=== PATIENT | male | born 1950 | race Caucasian/White ===

== ENCOUNTER 2017-05-01 06:57 | Inpatient (IN) ==
--- OUTSIDE RECORDS SUMMARY | 2017-05-01 07:05 | External Medical Summary | Referral Summary ---
:1950 Author Organization [facility] Address [address] [place] [address] HARSHA Harris [id number] Care Team Providers Name Role Phone Jg Gregg Primary Care Physician Encounter VC Date(s): 04/27/16 - 04/27/16 [facility] [address] [place] [address] HARSHA Harris [phone] Discharge Diagnosis: Incisional hernia Discharge Disposition: 01-Home or Self Care Attending Physician: Brian Galeana MD Admitting Physician: Brian Galeana MD Vital Signs Most recent to oldest [Reference Range]: 1 Temperature Tympanic [36.6-38.1 degC] 36.1 degC *LOW* (04/27/16 3:38 PM) Peripheral Pulse Rate [60-100 bpm] 89 bpm (04/27/16 3:38 PM) Blood Pressure [90-140/60-90 mmHg] 128/78 mmHg (04/27/16 3:38 PM) SpO2 98 % (04/27/16 3:38 PM) Problem List Condition Effective Dates Status Health Status Informant Diabetes mellitus(Confirmed) Active Diverticulitis of intestine with 02/2007 Active perforation(Confirmed) GERD (gastroesophageal reflux Active disease)(Confirmed) History of Marin's Active esophagus(Confirmed) Asthma(Confirmed) Active Obesity(Confirmed) Active patient Hiatal hernia(Confirmed) Active Allergies, Adverse Reactions, Alerts Substance Reaction Severity Status Latex Active penicillin Active Medications Advair Diskus 250 mcg-50 mcg inhalation powder 1 puffs, Inhalation, BID, # 28 Each, 0 Refill(s) Start Date: 06/25/14 Status: Orderedfluticasone 27.5 mcg/inh nasal spray 2 sprays, Nasal, Daily, as needed for allergy symptoms, # 10 g, 0 Refill(s) Start Date: 06/25/14 Status: OrderedHumaLOG 100 units/mL subcutaneous solution 10 units, SubCutaneous, TIDAC, # 10 mL, 0 Refill(s) Start Date: 04/26/16 Status: OrderedLevemir 100 units/mL subcutaneous solution 30 units, SubCutaneous, BID, 0 Refill(s) Start Date: 04/26/16 Status: Orderedlisinopril 10 mg oral tablet 10 mg 1 tabs, Oral, Daily, # 30 tabs, 0 Refill(s) Start Date: 04/26/16 Status: Orderedomeprazole 40 mg oral delayed release capsule 1 caps, Oral, Daily, # 30 caps, 0 Refill(s) Start Date: 06/25/14 Status: OrderedProAir HFA 90 mcg/inh inhalation aerosol 2 puffs, Inhalation, QID, as needed for wheezing, # 8.5 g, 0 Refill(s) Start Date: 04/26/16 Status: OrderedSingulair 10 mg oral tablet 1 tabs, Oral, qPM, # 30 tabs, 0 Refill(s) Start Date: 06/25/14 Status: Ordered Results No data available for this section Immunizations No data available for this section Procedures Procedure Date Related Diagnosis Body Site Esophagogastroduodenoscopy 08/2013 Appendectomy1 09/2007 Take-down of colostomy 09/2007 History of partial colectomy2 02/2007 Hx of knee surgery3 2006 1at same time as colostomy [id number] Social History Social History Type Response Smoking Status Never smoker Assessment and Plan Extracted from: Title: Ambulatory Patient Education Author: Brian Galeana MD Date: Emergency Medicine Hernia, Adult A hernia is the bulging of an organ or tissue through a weak spot in the muscles of the abdomen (abdominal wall). Hernias develop most often near the navel or groin. There are many kinds of hernias. Common kinds include: Femoral hernia. This kind of hernia develops under the groin in the upper thigh area. Inguinal hernia. This kind of hernia develops in the groin or scrotum. Umbilical hernia. This kind of hernia develops near the navel. Hiatal hernia. This kind of hernia causes part of the stomach to be pushed up into the chest. Incisional hernia. This kind of hernia bulges through a scar from an abdominal surgery. CAUSES This condition may be caused by: Heavy lifting. Coughing over a long period of time. Straining to have a bowel movement. An incision made during an abdominal surgery. A defect (congenital defect). Excess weight or obesity. Smoking. Poor nutrition. Cystic fibrosis. Excess fluid in the abdomen. Undescended testicles. SYMPTOMS Symptoms of a hernia include: A lump on the abdomen. This is the first sign of a hernia. The lump may become more obvious with standing, straining, or coughing. It may get bigger over time if it is not treated or if the condition causing it is not treated. Pain. A hernia is usually painless, but it may become painful over time if treatment is delayed. The pain is usually dull and may get worse with standing or lifting heavy objects. Sometimes a hernia gets tightly squeezed in the weak spot (strangulated) or stuck there (incarcerated) and causes additional symptoms. These symptoms may include: Vomiting. Nausea. Constipation. Irritability. DIAGNOSIS A hernia may be diagnosed with: A physical exam. During the exam your health care provider may ask you to cough or to make a specific movement, because a hernia is usually more visible when you move. Imaging tests. These can include: X-rays. Ultrasound. CT scan. TREATMENT A hernia that is small and painless may not need to be treated. A hernia that is large or painful may be treated with surgery. Inguinal hernias may be treated with surgery to prevent incarceration or st rangulation. Strangulated hernias are always treated with surgery, because lack of blood to the trapped organ or tissue can cause it to . Surgery to treat a hernia involves pushing the bulge back into place and repairing the weak part of the abdomen. HOME CARE INSTRUCTIONS Avoid straining. Do not lift anything heavier than 10 lb (4.5 kg). Lift with your leg muscles, not your back muscles. This helps avoid strain. When coughing, try to cough gently. Prevent constipation. Constipation leads to straining with bowel movements, which can make a hernia worse or cause a hernia repair to break down. You can prevent constipation by: Eating a high-fiber diet that includes plenty of fruits and vegetables. Drinking enough fluids to keep your urine clear or pale yellow. Aim to drink 68 glasses of water per day. Using a stool softener as directed by your health care provider. Lose weight, if you are overweight. Do not use any tobacco products, including cigarettes, chewing tobacco, or electronic cigarettes. If you need help quitting, ask your health care provider. Keep all follow-up visits as directed by your health care provider. This is important. Your health care provider may need to monitor your condition. SEEK MEDICAL CARE IF: You have swelling, redness, and pain in the affected area. Your bowel habits change. SEEK IMMEDIATE MEDICAL CARE IF: You have a fever. You have abdominal pain that is getting worse. You feel nauseous or you vomit. You cannot push the hernia back in place by gently pressing on it while you are lying down. The hernia: Changes in shape or size. Is stuck outside the abdomen. Becomes discolored. Feels hard or tender. This information is not intended to replace advice given to you by your health care provider. Make sure you discuss any questions you have with your health care provider. Document Released: 03/14/2006 Document Revised: 04/04/2015 Document Reviewed: 01/22/2015 [employer] Patient Education 2016 [employer]. No follow up information was provided. Extracted from: Title: Office Visit Note Author: Brian Galeana MD Date: 04/27/16 Assessment/Plan 1.Incisional hernia Ordered: Office Visit Level 4 Est 61675 Plan:Robotic-assisted laparoscopicventral herniorrhaphy with incorporation of mesh. We'll schedule at patient's requestat later date. I didreview the patient's chart including office note performed by his primary care physician from December 17, 2015. I also reviewed my prior consultation note from his [facility] 2015.. I informed the patient that he does indeed have an incisional hernia and I would recommend proceeding with an elective repairat some point time. I spent a fair amount of time discussi ng hernias as an entity with the patient. . I did discuss in detail with the patient what a robotic-assisted laparoscopic incisional herniorrhaphy with mesh entailed and its associated risks including b ut not inclusive of bleeding and infection,, potential conversion to open procedure,potential injury tounderlying viscusas a result ofprobable adhesions as well as potential for recurrence. Th e patient understood will call back when he is ready to schedule. Patient stated that he would like to try to lose somemore weight before proceeding with surgical intervention. Patient informsme that he has lost about 100 pounds overthe last year and a half. I informed the patient that I felt thiswas appropriate and that his risk for recurrencewould be lessif he was indeed able to lo se some additional weight before proceeding with surgery.
--- OUTSIDE RECORDS SUMMARY | 2017-05-01 07:05 | External Medical Summary ---
:1950 Author Organization [employer] Care Team Providers Name Role Phone Miguelina Ramirez Provider Role Unavailable Allergies No Known Allergies Problems Problem Type Condition Code Onset Dates Condition Status Problem Other nonspecific finding on 791.9 Active examination of urine Problem Urinary frequency 788.41 Active Problem Diabetes Mellitus Type 2, not stated 250.00 Active as uncontrolled Problem Right upper quadrant pain R10.11 Active Problem Dysuria 788.1 Active Problem Diabetes Mellitus Type 2, not stated 250.00 Active as uncontrolled Medications No Known Medications Results No Known Results Summary Purpose eClinicalWorks Submission
--- OUTSIDE RECORDS SUMMARY | 2017-05-01 07:05 | External Medical Summary ---
:1950 Author Organization [employer] Care Team Providers Name Role Phone Jg Gregg Provider Role Unavailable Allergies, Adverse Reactions, Alerts Substance Reaction Event Type Penicillin respitory distress Drug Allergy Latex Info Not Available Non Drug Allergy ragweed Info Not Available Non Drug Allergy hayfever Info Not Available Non Drug Allergy Problems Problem Type Condition Code Onset Dates Condition Status Problem Diabetes Mellitus Type 2, not 250.00 Active stated as uncontrolled Problem Frequency of micturition R35.0 Active Problem Acute bronchitis, unspecified J20.9 Active Problem Allergic rhinitis, unspecified J30.9 Active Assessment Ventral hernia without obstruction K43.9 Active or gangrene Problem Unspecified asthma, uncomplicated J45.909 Active Problem Type 2 diabetes mellitus with E11.65 Active hyperglycemia Problem Gastro-esophageal reflux disease K21.9 Active without esophagitis Problem Other asthma J45.998 Active Problem Type 2 diabetes mellitus without E11.9 Active complications Problem Essential (primary) hypertension I10 Active Assessment Allergic rhinitis, unspecified J30.9 Active Assessment Essential (primary) hypertension I10 Active Assessment Hyperlipidemia, unspecified E78.5 Active Assessment Unspecified asthma, uncomplicated J45.909 Active Problem Diabetes Mellitus Type 2, not 250.00 Active stated as uncontrolled Problem Dysuria 788.1 Active Assessment Type 2 diabetes mellitus with E11.65 Active hyperglycemia Problem Urinary frequency 788.41 Active Problem Right upper quadrant pain R10.11 Active Problem Other nonspecific finding on 791.9 Active examination of urine Medications Medication Code System Code Instructions Start End Date Status Dosage Date Singulair [facility] 31325-97 10 MG Orally 1 tablet in 17-01 Once a day the evening Advair Diskus [facility] 01132-53 250-50 MCG/DOSE 1 puff 96-00 Inhalation Twice a day Levemir Flexpen [facility] 03401-48 100 UNIT/ML Oct 28, 25 units in 39-10 Subcutaneous as 2016 the am and directed. 25 units in the pm daily. ProAir HFA [facility] 67768-70 108 (90 Base) Oct 28, 1 to 2 51-85 MCG/ACT 2016 puffs as Inhalation every needed for 6 hrs asthma symptoms. Flonase [facility] 85092-32 50 MCG/ACT 1 spray in Nasally Once a each day nostril Lisinopril [facility] 98075-20 10 MG Orally 1 tablet Once a day Humalog KwikPen [facility] 90380-32 100 UNIT/ML Oct 28 units Subcutaneous as 2015 tid with directed meals. Procedures Procedure Coding System Code Date OFFICE VISIT, EST-LOW COMPLEXITY (15 MIN.) CPT-4 43988 Dec 17, 2015 Vital Signs Date/Time: Dec 17, 2015 Temperature 96.8 F Height 70 in Weight 306.0 lbs Blood Pressure Diastolic 80 mm Hg Blood Pressure Systolic 140 mm Hg Cardiac Monitoring Heart Rate 93 /min BMI 43.90 Index Oximetry 98 % Respiratory Rate 18 /min Results No Known Results Summary Purpose eClinicalWorks Submission
--- OUTSIDE RECORDS SUMMARY | 2017-05-01 07:06 | External Medical Summary ---
[...] Condition Code Onset Dates Condition Status Problem Dysuria 788.1 Active Problem Other nonspecific finding on 791.9 Active examination of urine Problem Urinary frequency 788.41 Active Problem Essential (primary) hypertension I10 Active Problem Gastro-esophageal reflux disease K21.9 Active without esophagitis Problem Type 2 diabetes mellitus without E11.9 Active complications Problem Acute bronchitis, unspecified J20.9 Active Problem Diabetes Mellitus Type 2, not 250.00 Active stated as uncontrolled Problem Other asthma J45.998 Active Problem Frequency of micturition R35.0 Active Assessment Other asthma J45.998 Active Assessment Essential (primary) hypertension I10 Active Assessment Type 2 diabetes mellitus without E11.9 Active complications Assessment Gastro-esophageal reflux disease K21.9 Active without esophagitis Problem Right upper quadrant pain R10.11 Active Assessment Seasonal allergies J30.2 Active Problem Diabetes Mellitus Type 2, not 250.00 Active stated as uncontrolled Medications Medication Code System Code Instructions Start End Date Status Dosage Date Advair Diskus [facility] 98580-18 250-50 MCG/DOSE 1 puff 96-00 Inhalation Twice a day ProAir HFA [facility] 32736-50 108 (90 Base) Oct 28, 1 to 2 51-85 MCG/ACT 2016 puffs as Inhalation every needed for 6 hrs asthma symptoms. Humalog KwikPen [facility] 31589-89 100 UNIT/ML Oct 28, 10 units 99-01 Subcutaneous as 2015 tid with directed meals. Lisinopril [facility] 35924-85 10 MG Orally 1 tablet - Once a day Flonase [facility] 14621-59 50 MCG/ACT 1 spray in 01 Nasally Once a each day nostril Levemir Flexpen [facility] 28078-01 100 UNIT/ML Oct 28, 25 units in 39-10 Subcutaneous as 2016 the am and directed. 25 units in the pm daily. Procedures Procedure Coding System Code Date OFFICE VISIT, EST-LOW COMPLEXITY (15 MIN.) CPT-4 10669 Oct 29, 2015 Vital Signs Date/Time: Oct 29, 2015 Temperature 97.6 F Height 70 in Weight 302.1 lbs Blood Pressure Diastolic 82 mm Hg Blood Pressure Systolic 138 mm Hg Cardiac Monitoring Heart Rate 67 /min BMI 43.34 Index Oximetry 97 % Results No Known Results Summary Purpose eClinicalWorks Submission
--- OUTSIDE RECORDS SUMMARY | 2017-05-01 07:06 | External Medical Summary | Continuity of Care Document ---
:1950 Author Organization [facility] Allergies Active Description Code Type Severity Reaction Onset Reported/ Identified Relationship Clinical to Patient Status Yes penicillin NKMA N/A N/A 06/25/2014 Yes Latex NKMA N/A N/A 04/27/2016 Medications There is no data. Problems Date Dx Attending Type Code Diagnosis Diagnosed By Coded 04/27/2016 Brian Sosa Final K43.2 Incisional hernia M without obstruction or gangrene 11/23/2016 Julita Headley Z98.890 Other specified Tanisha Amezquita postprocedural states Procedures Code Description [place] [address] Office or 04/27/2016 other outpatient visit for the evaluation and management of an established patient, which requires at least 2 of these 3 boss components: A detailed history; A detailed examination; Medical d [id number] Postoperative 11/23/2016 follow-up visit, normally included in the surgical package, to indicate that an evaluation and management service was performed during a postoperative period for a reason(s) related to t Results There is no data. Encounters ACCT No. Visit Discharge Status Pt. Type Provider Facility Loc./Unit Complaint Date/Time [id number] 11/23/2016 11/23/2016 DIS Outpatient Fang [facility] [address] 10:44:00 23:59:00 , [facility] [id number] 04/27/2016 04/27/2016 DIS Outpatient Sheila [facility] [address] 15:23:00 23:59:00 , Brian Orona [facility]
--- OUTSIDE RECORDS SUMMARY | 2017-05-01 07:06 | External Medical Summary ---
:1950 Author Organization [employer]ClinicalWorks Care Team Providers Name Role Phone ZoedevynMiguelina Provider Role Unavailable Allergies No Known Allergies Problems Problem Type Condition Code Onset Dates Condition Status Problem Dysuria 788.1 Active Problem Other nonspecific finding on 791.9 Active examination of urine Problem Urinary frequency 788.41 Active Problem Right upper quadrant pain R10.11 Active Problem Diabetes Mellitus Type 2, not 250.00 Active stated as uncontrolled Problem Essential (primary) hypertension I10 Active Problem Gastro-esophageal reflux disease K21.9 Active without esophagitis Problem Type 2 diabetes mellitus without E11.9 Active complications Problem Acute bronchitis, unspecified J20.9 Active Problem Diabetes Mellitus Type 2, not 250.00 Active stated as uncontrolled Problem Other asthma J45.998 Active Problem Frequency of micturition R35.0 Active Medications No Known Medications Results No Known Results Summary Purpose eClinicalWorks Submission
--- OUTSIDE RECORDS SUMMARY | 2017-05-01 07:06 | External Medical Summary ---
:1950 Author Organization [employer] Care Team Providers Name Role Phone Miguelina Ramirez Provider Role Unavailable Allergies, Adverse Reactions, Alerts Substance Reaction Event Type Penicillin respitory distress Drug Allergy ragweed Info Not Available Non Drug Allergy hayfever Info Not Available Non Drug Allergy Problems Problem Type Condition Code Onset Dates Condition Status Assessment Urinary frequency 788.41 Active Assessment Dysuria 788.1 Active Assessment Other nonspecific finding on 791.9 Active examination of urine Problem Other nonspecific finding on 791.9 Active examination of urine Problem Urinary frequency 788.41 Active Problem Diabetes Mellitus Type 2, not stated 250.00 Active as uncontrolled Problem Right upper quadrant pain R10.11 Active Assessment Diabetes Mellitus Type 2, not stated 250.00 Active as uncontrolled Problem Dysuria 788.1 Active Problem Diabetes Mellitus Type 2, not stated 250.00 Active as uncontrolled Medications Medication Code System Code Instructions Start End Date [place] D[place] [address]-30 100 UNIT/ML 30 units 87-12 [place] [address]-43 40 MG Orally 1 capsule 12-01 [place] [address]-44 100 UNIT/ML 10 01-11 [place] [address]-16 250-50 MCG/DOSE 1 puff 96-00 Inhalation Twice a day Kelly-D 24 NDC 0 [place] [address]-60 10 MG Orally 1 tablet in 17 Once [place] [address]-64 10 MG Orally 1 tablet - Once a day Procedures Procedure Coding System Code Date OFFICE VISIT, TOOL ROOM ATTENDANT-LOW COMPLEXITY (30 MIN.) CPT-4 06847 Dec 16, 2014 URINALYSIS, IN HOUSE CPT-4 04497 Dec 16, 2014 Vital Signs Date/Time: Dec 16, 2014 Height 70 in Weight 305 lbs Temperature 97.0 F Blood Pressure Diastolic 78 mm Hg Blood Pressure Systolic 138 mm Hg Cardiac Monitoring Heart Rate 88 /min BMI 43.76 Index Respiratory Rate 18 /min Results Name Result Date Reference Range Unit Abnormality Flag In House Urinalysis, automated Summary Purpose eClinicalWorks Submission
--- OUTSIDE RECORDS SUMMARY | 2017-05-01 07:06 | External Medical Summary ---
:1950 Author Organization [employer] Care Team Providers Name Role Phone Jg Gregg Provider Role Unavailable Allergies No Known Allergies Problems Problem Type Condition Code Onset Dates Condition Status Problem Diabetes Mellitus Type 2, not 250.00 Active stated as uncontrolled Problem Frequency of micturition R35.0 Active Problem Acute bronchitis, unspecified J20.9 Active Problem Allergic rhinitis, unspecified J30.9 Active Problem Unspecified asthma, uncomplicated J45.909 Active Problem Type 2 diabetes mellitus with E11.65 Active hyperglycemia Problem Gastro-esophageal reflux disease K21.9 Active without esophagitis Problem Other asthma J45.998 Active Problem Type 2 diabetes mellitus without E11.9 Active complications Problem Essential (primary) hypertension I10 Active Problem Diabetes Mellitus Type 2, not 250.00 Active stated as uncontrolled Problem Dysuria 788.1 Active Problem Urinary frequency 788.41 Active Problem Right upper quadrant pain R10.11 Active Problem Other nonspecific finding on 791.9 Active examination of urine Medications No Known Medications Results No Known Results Summary Purpose eClinicalWorks Submission
--- OUTSIDE RECORDS SUMMARY | 2017-05-01 07:06 | External Medical Summary ---
:1950 Author Organization eClinicalWorks Care Team Providers Name Role Phone Miguelina Ramirez Provider Role Unavailable Allergies, Adverse Reactions, Alerts Substance Reaction Event Type Penicillin respitory distress Drug Allergy ragweed Info Not Available Non Drug Allergy hayfever Info Not Available Non Drug Allergy Problems Problem Type Condition Code Onset Dates Condition Status Assessment Diabetes Mellitus Type 2, not stated 250.00 Active as uncontrolled Problem Right upper quadrant pain R10.11 Active Assessment Acute bronchitis, unspecified J20.9 Active Assessment Essential (primary) hypertension I10 Active Problem Acute bronchitis, unspecified J20.9 Active Problem Diabetes Mellitus Type 2, not stated 250.00 Active as uncontrolled Problem Frequency of micturition R35.0 Active Problem Dysuria 788.1 Active Problem Diabetes Mellitus Type 2, not stated 250.00 Active as uncontrolled Problem Other nonspecific finding on 791.9 Active examination of urine Problem Urinary frequency 788.41 Active Medications Medication Code System Code Instructions Start End Date Status Dosage Date Flonase [facility] [place] [address]-120 50 MCG/ACT 1 spray in 3-01 Nasally [place] [address] 500 MG Orally Jan 06, Jan 16, 1 tablet 4-01 every 12 hrs 2014 [place] [address] 250-50 MCG/DOSE 1 puff 6-00 [place] [address]-351 10 MG Orally 1 tablet 7-01 [place] [address]64 100 UNIT/ML 10 1-11 Subcutaneous TID Procedures Procedure Coding System Code Date COMPREHENSIVE METABOLIC PANEL CPT-4 63595 Jan 06, 2015 COMPLETE CBC W/AUTO DIFF WBC CPT-4 84035 Jan 06, 2015 URINALYSIS, IN HOUSE CPT-4 31216 Jan 06, 2015 OFFICE VISIT, EST-LOW COMPLEXITY (15 MIN.) CPT-4 05603 Jan 06, 2015 Vital Signs Date/Time: Jan 06, 2015 Height 70 in Weight 303 lbs Temperature 97.7 F Blood Pressure Diastolic 88 mm Hg Blood Pressure Systolic 150 mm Hg Cardiac Monitoring Heart Rate 68 /min BMI 43.47 Index Oximetry 97 % Respiratory Rate 18 /min Results Name Result Date Reference Range Unit Abnormality Flag In House Urinalysis, automated CBC With Platelet and Differential Summary Purpose eClinicalWorks Submission
[2017-05-01] MEDS ORDERED: MORPHINE SULFATE 4mg INJECTION IVP ONE (08:07)
[2017-05-01] MEDS ORDERED: GI COCKTAIL 30 ML PO ONE (08:07)
[2017-05-01] MEDS ORDERED: SALINE FLUSH 10ml SYRINGE IVF PRN (08:07)
[2017-05-01] MEDS ORDERED: NS 1,000 ML IV ONE (08:07)
[2017-05-01] MEDS ORDERED: ONDANSETRON 4 MG/2 ML INJECTION IVP ONE (08:07)
[2017-05-01] MEDS ORDERED: IOHEXOL 300mg/ml 100ml INJECTION ONE (08:19)
[2017-05-01] MEDS ORDERED: SALINE FLUSH 10ml SYRINGE ONE (08:19)
--- NOTE | 2017-05-01 08:33 | XRay Report ---
INDICATION: abd pain,dyspnea PROCEDURE: CHEST 2-VIEWS UPRIGHT (PA & LAT) Encounter: Initial COMPARISON: October 07, 2016 FINDINGS: The lungs are clear without evidence of focal abnormal airspace opacity. There is no pleural effusion or pneumothorax. Tiny left upper lobe calcified granuloma. The heart size, mediastinal contours and pulmonary vascularity are within normal limits. There is no significant skeletal abnormality. IMPRESSION: No acute cardiopulmonary disease. .
--- NOTE | 2017-05-01 09:59 | Emergency Department Report ---
Abdominal Pain HPI - General Chief Complaint: Abdominal Pain Stated Complaint: severe abd pain Time Seen by Provider: 05/01/17 06:59 - History of Present Illness HPI narrative: 66-year-old gentleman presents with abdominal pain. Pain is midepigastric right upper quadrant. This going on for a long time, however last night about midnight he had a bowl of soup and the pain increased in severity. It is been severe since then. Has nausea but no vomiting. No diarrhea. No fever or chills. No chest pain, shortness of breath or chest pressure. He has been told that he has a bad gallbladder, but needed to have some hernia repairs before he had the gallbladder removed. - Related Data Home Medications Medication Instructions Recorded Confirmed Insulin Aspart [NovoLOG] 8 - 12 unit SQ TID #0 10/25/15 05/01/17 Montelukast Sodium [Singulair] 1 tab PO HS #0 10/25/15 05/01/17 Omeprazole 1 cap PO BID #0 10/25/15 05/01/17 Fluticasone Propionate [Flonase 1 spray [place]MIRA DAILY 11/03/16 05/01/17 Allergy Relief] Lisinopril [Prinivil] 5 mg PO DAILY 11/03/16 05/01/17 Fluticasone/Salmeterol 250/50 1 puff INH BID 05/01/17 05/01/17 [Advair 250-50 Diskus] Insulin Detemir [Levemir] 36 unit SQ BID 05/01/17 05/01/17 Allergies Allergy/AdvReac Type Severity Reaction Status Date / Time Penicillins Allergy Intermediate HIVES Verified 05/01/17 07:11 latex Allergy Mild TOPICAL Verified 05/01/17 07:11 RASH Review of Systems All systems: reviewed and negative except as stated PFSH Patient Stated Medical History Hypertension Yes Chronic Obstructive Pulmonary Yes Disease (COPD) Diabetes Mellitus Type 1 Yes Gastroesophageal Reflux Yes Disease Clotting Problems Yes: clots in l arm Osteoarthritis Pt denies osteoarthritis - Social History Smoking status: Never smoker Substance use type: does not use Physical Exam - Limitations Limitations: no limitations - General General appearance: alert - Normal Exams: Head:: Normocephalic without trauma Chest/Respirations:: Clear all elam, with good airflow, and symmetry bilaterally Cardiovascular:: Regular rate and rhythm, without murmur or gallop, Pulses 2+ all extremities, capillary refill, <2 seconds all extremities Abdomen:: Bowel sounds positive, non-distended, no hepatosplenomegaly, masses or bruits noted Neurological:: Patient is alert, and oriented, cranial nerves, motor/sensory/ cerebellar, exams w/o gross deficits, to observation Psychiatric:: Patient exhibits, appropriate attention, emotion and affect - Abdominal Exam Abdominal tenderness: Present: RUQ, epigastrium, moderate Course Vital Signs Temperature 97.6 F 05/01/17 07:16 Pulse Rate 90 05/01/17 07:16 Respiratory Rate 16 05/01/17 07:16 Blood Pressure 177/81 H 05/01/17 07:16 Pulse Oximetry 97 05/01/17 07:16 Temperature 97.6 F 05/01/17 07:16 Pulse Rate 100 05/01/17 09:38 Respiratory Rate 16 05/01/17 07:16 Blood Pressure 144/70 H 05/01/17 09:36 Pulse Oximetry 97 05/01/17 09:38 Abdominal Pain - MDM Narrative Medical decision making narrative: Normal saline 1 L given as a bolus. 4 mg Zofran IV. Patient was also given fentanyl 50 g IV. White count elevated at 15.6, significant abnormalities and CMP coating AST ALT and bilirubin. LDH is pending. CT scan of abdomen shows inflammation of the gallbladder. No comment is made about pancreatitis. Lipase is 8800. Patient certainly does not look as toxic as the lipase value would imply. However, Per Ransons Criteria patient is at least a score of 3, still pending the LDH. Patient will be made nothing by mouth, we will hold off on NG tube at this time, however if he becomes more ill with this, and G-tube was necessary. Hospitalist accepted patient for admission. - Differential Diagnosis Differential diagnosis: Likely: abdominal pain, calculus of kidney, constipation , diverticulitis, gastroenteritis, pancreatitis, small bowel obstruction - Medical Records Attestation: I reviewed the patient's medical records. - Lab Data Attestation: I reviewed the patient's lab results. Result diagrams: 05/01/17 08:29 05/01/17 08:29 Lab Results 05/01/17 05/01/17 05/01/17 Range/Units 08:28 08:29 08:29 WBC 15.6 H (4.5-11.0) T/MM3 RBC 5.67 (4.50-5.90) M/MM3 Hgb 16.7 (13.5-17.5) GM/DL Hct 50.4 (41-53) % MCV 88.9 (80-100) UM3 MCH 29.5 (26-34) UUG MCHC 33.1 (31-37) GM/DL RDW Std Deviation 42.5 (36.9-50.2) FL Plt Count 231 (130-400) T/MM3 MPV 10.3 (9.4-12.4) UM3 Immature Gran % (Auto) Not performed Neut % (Auto) Not performed Lymph % (Auto) Not performed [place] % (Auto) Not performed Eos % (Auto) Not performed Baso % (Auto) Not performed Neut # (Auto) Not performed Lymph # (Auto) Not performed [place] # (Auto) Not performed Eos # (Auto) Not performed Baso # (Auto) Not performed Abs Immat Gran (auto) Not performed Neutrophils % (Manual) 73.0 H (33-66) % Band Neutrophils % 2.0 (0-6) % Lymphocytes % (Manual) 19.0 L (23-45) % Monocytes % (Manual) 5.0 (0-9.0) % Eosinophils % (Manual) 1.0 (0-4) % Neutrophils # (Manual) 11.4 H (1.8-7.7) T/MM3 Band Neutrophils # 0.3 T/MM3 Lymphocytes # (Manual) 3.0 (1-4.8) T/MM3 Monocytes # (Manual) 0.8 (0-0.8) T/MM3 Eosinophils # (Manual) 0.2 (0-0.5) T/MM3 RBC Morph Comment Normal Turbidity < 20 (0-20) Sodium 143 (134-144) MEQ/L Potassium 3.6 (3.6-5) MEQ/L Chloride 103 (98-107) MEQ/L Carbon Dioxide 27 (22-30) MEQ/L Anion Gap 13 (5-15) MEQ/L BUN 12.0 (9-20) MG/DL Creatinine 0.8 (0.8-1.5) MG/DL GFR Calculation 97 BUN/Creatinine Ratio 15 (6-26) RATIO Glucose 232 H (75-110) MG/DL Calculated Osmolality 282 H (261-280) MOSM/KG Calcium 9.7 (8.4-10.2) MG/DL Total Bilirubin 1.60 H (0.20-1.30) MG/DL Icterus Index < 2 (0-7) AST 293 H (17-59) U/L ALT 203 H (21-72) U/L Alkaline Phosphatase 202 H (38-126) U/L Total Protein 8.3 H (6.3-8.2) G/DL Albumin 4.5 (3.5-5.0) G/DL Globulin 3.8 H (2.4-3.6) G/DL Albumin/Globulin Ratio 1.2 (1.1-2.2) RATIO Lipase 8922 H (23-300) U/L Plasma Lactate 2.1 (0.6-2.2) MMOL/L Specimen Hemolysis < 15 (0-25) Ur Collection Type Urine, void-cc/notcc Urine Color Yellow (YELLOW) Urine Clarity Clear Urine pH 6.5 (5.0-8.0) Ur Specific [place] 1.015 (1.015-1.025) Urine Protein Trace A (NEGATIVE) Urine Glucose (UA) 3+ A (NEGATIVE) Urine Ketones Negative (NEGATIVE) Urine Occult Blood Negative (NEGATIVE) Urine Nitrate Negative (NEGATIVE) Urine Bilirubin Negative (NEGATIVE) Urine Urobilinogen 4.0 A (NORMAL) EU/DL Ur Leukocyte Esterase Negative (NEGATIVE) Urinalysis Comment Microscopic not ind. - Radiology Data Attestation: I reviewed the patient's radiology results. Disposition Clinical Impression: Pancreatitis Disposition: 02 To [facility] Condition: Stable Time of Disposition: 11:15 - Seen By: physician
[2017-05-01] MEDS ORDERED: FentaNYL 100 MCG/2 ML INJECTION IVP ONE (11:10)
[2017-05-01 11:29] VITALS: BMI 43.8
--- NOTE | 2017-05-01 12:49 | History & Physical Report ---
History of Present Illness Date: 05/01/17 Chief complaint: Abdominal pain, vomiting. HPI: Dontae is a very pleasant 66 yo WM who presented today due to abdominal pain, inability to tolerate PO. He was unable to tolerate water without vomiting last night. He has a history of multiple abdominal issues. He most recently underwent multiple hernia repairs by Dr. Galeana in Oct of last year. He has been told in the past that he needed his GB removed, but that had been put off due to his need for hernia repair. Again, he reports that his symptoms began yesterday. He was initially concerned that the pain was due to a recurrence of Marin's esophagus, however, he later realized that the pain was more in the RUQ. Denies any fever, but usually runs a "low temperature" when he is ill. Denies any headache or respiratory concern. Reports that he has some neck pain, which is chronic for him. He has recently lost 100 pounds intentionally. 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 Is currently having significant financial concerns due to loss of job. [facility] Review of Systems All systems PM: 10-point ROS was reviewed, no additional remarkable complaints except - Constitutional Constitutional: Present: weight loss. Absent: fever(s), headache(s) - Cardiovascular Cardiovascular: Absent: chest pain, dyspnea on exertion, orthopnea, edema - Respiratory Respiratory: Absent: cough, dyspnea, chest congestion - Gastrointestinal Gastrointestinal: Present: abdominal pain, nausea, vomiting - Musculoskeletal Musculoskeletal: Present: back pain, neck pain Past Medical History Patient Stated Medical History Hypertension Yes Chronic Obstructive Pulmonary Yes Disease (COPD) Diabetes Mellitus Type 2 Yes Gastroesophageal Reflux/Marin's Yes Disease Clotting Problems Yes: clots in l arm Osteoarthritis Pt denies osteoarthritis pSBO Ruptured diverticulum requiring colostomy Asthma Hiatal hernia Surgical History: Colon resection with colostomy due to ruptured diverticulum- 2006. Colostomy reversal with appy 2007. Right knee. EGD with ablation. Ventral hernia repair 2017. Cervical spine fusion Family History Updates: Unknown- adopted - Social History Smoking status: Never smoker Substance use type: does not use Alcohol intake frequency: does not drink Housing: house Current occupational status: unemployed Current residence: Apartment/Private Home Medications Home Medications Medication Instructions Recorded Confirmed Type Insulin Aspart [NovoLOG] 8 - 12 unit SQ TID #0 10/25/15 05/01/17 History Montelukast Sodium [Singulair] 1 tab PO HS #0 10/25/15 05/01/17 History Omeprazole 1 cap PO BID #0 10/25/15 05/01/17 History Fluticasone Propionate [Flonase 1 spray [place] DAILY 11/03/16 05/01/17 History Allergy Relief] Lisinopril [Prinivil] 5 mg PO DAILY 11/03/16 05/01/17 History Fluticasone/Salmeterol 250/50 1 puff INH BID 05/01/17 05/01/17 History [Advair 250-50 Diskus] Insulin Detemir [Levemir] 36 unit SQ BID 05/01/17 05/01/17 History Allergies Allergy/AdvReac Type Severity Reaction Status Date / Time Penicillins Allergy Intermediate HIVES Verified 05/01/17 07:11 latex Allergy Mild TOPICAL Verified 05/01/17 07:11 RASH Exam Vital Signs: Temperature 99.0 F 05/01/17 11:27 Pulse Rate 111 H 05/01/17 11:27 Respiratory Rate 18 05/01/17 11:27 Blood Pressure 133/71 05/01/17 11:27 Pulse Oximetry 94 05/01/17 10:35 Telemetry Rhythm: Sinus Tachycardia Height/Weight/BMI: Height 1.8 m Weight 142.5 kg Body Mass Index 43.8 - Constitutional Present: no acute distress, well nourished, well developed, morbidly obese - Routine HEENT Exam Head: Present: normocephalic, atraumatic Eye: Present: EOMI, PERRL, normal accommodation ENT: Present: mucous membranes moist - Routine Neck Exam Present: supple. Absent: JVD - Routine Respiratory Exam Present: CTA bilaterally. Absent: accessory muscle use, rales, rhonchi, wheezes , crackles - Routine Cardiovascular Exam Present: RRR, S1, S2, no murmur - Routine Abdominal Exam Present: soft, tenderness, distended. Absent: normoactive bowel sounds ( hypoactive) - Routine Extremities Exam Present: no edema, non tender - Routine Skin Exam Present: intact, dry, warm. Absent: jaundice - Routine Neurological Exam Present: alert, oriented X3, CN II-XII intact, moving all extremities - Routine Psychiatric Exam Present: normal affect, normal thought process, cooperative Results - Labs CBC & Chem 7: 05/01/17 08:29 05/01/17 08:29 Labs: Laboratory Results - last 24 hr 05/01/17 05/01/17 05/01/17 08:28 08:29 08:29 WBC 15.6 H RBC 5.67 Hgb 16.7 Hct 50.4 MCV 88.9 MCH 29.5 MCHC 33.1 RDW Std Deviation 42.5 Plt Count 231 MPV 10.3 Immature Gran % (Auto) Not performed Neut % (Auto) Not performed Lymph % (Auto) Not performed [place] % (Auto) Not performed Eos % (Auto) Not performed Baso % (Auto) Not performed Neut # (Auto) Not performed Lymph # (Auto) Not performed [place] # (Auto) Not performed Eos # (Auto) Not performed Baso # (Auto) Not performed Abs Immat Gran (auto) Not performed Neutrophils % (Manual) 73.0 H Band Neutrophils % 2.0 Lymphocytes % (Manual) 19.0 L Monocytes % (Manual) 5.0 Eosinophils % (Manual) 1.0 Neutrophils # (Manual) 11.4 H Band Neutrophils # 0.3 Lymphocytes # (Manual) 3.0 Monocytes # (Manual) 0.8 Eosinophils # (Manual) 0.2 RBC Morph Comment Normal Turbidity < 20 Sodium 143 Potassium 3.6 Chloride 103 Carbon Dioxide 27 Anion Gap 13 BUN 12.0 Creatinine 0.8 GFR Calculation 97 BUN/Creatinine Ratio 15 Glucose 232 H Calculated Osmolality 282 H Calcium 9.7 Total Bilirubin 1.60 H Icterus Index < 2 AST 293 H ALT 203 H Alkaline Phosphatase 202 H Lactate Dehydrogenase Total Protein 8.3 H Albumin 4.5 Globulin 3.8 H Albumin/Globulin Ratio 1.2 Lipase 8922 H Plasma Lactate 2.1 Specimen Hemolysis < 15 Ur Collection Type Urine, void-cc/notcc Urine Color Yellow Urine Clarity Clear Urine pH 6.5 Ur Specific [place] 1.015 Urine Protein Trace A Urine Glucose (UA) 3+ A Urine Ketones Negative Urine Occult Blood Negative Urine Nitrate Negative Urine Bilirubin Negative Urine Urobilinogen 4.0 A Ur Leukocyte Esterase Negative Urinalysis Comment Microscopic not ind. 05/01/17 11:06 WBC RBC Hgb Hct MCV MCH MCHC RDW Std Deviation Plt Count MPV Immature Gran % (Auto) Neut % (Auto) Lymph % (Auto) [place] % (Auto) Eos % (Auto) Baso % (Auto) Neut # (Auto) Lymph # (Auto) [place] # (Auto) Eos # (Auto) Baso # (Auto) Abs Immat Gran (auto) Neutrophils % (Manual) Band Neutrophils % Lymphocytes % (Manual) Monocytes % (Manual) Eosinophils % (Manual) Neutrophils # (Manual) Band Neutrophils # Lymphocytes # (Manual) Monocytes # (Manual) Eosinophils # (Manual) RBC Morph Comment Turbidity Sodium Potassium Chloride Carbon Dioxide Anion Gap BUN Creatinine GFR Calculation BUN/Creatinine Ratio Glucose Calculated Osmolality Calcium Total Bilirubin Icterus Index AST ALT Alkaline Phosphatase Lactate Dehydrogenase 1400 H Total Protein Albumin Globulin Albumin/Globulin Ratio Lipase Plasma Lactate 2.0 Specimen Hemolysis Ur Collection Type Urine Color Urine Clarity Urine pH Ur Specific [place] Urine Protein Urine Glucose (UA) Urine Ketones Urine Occult Blood Urine Nitrate Urine Bilirubin Urine Urobilinogen Ur Leukocyte Esterase Urinalysis Comment - Imaging and Cardiology Chest x-ray Status: image reviewed by me Additional comments: IMPRESSION: No acute cardiopulmonary disease. CT scan - abdomen Status: pending Additional comments: GB wall thickening, possible edema. Assessment and Plan (1) Pancreatitis Current visit: Yes Status: Acute Assessment and Plan: Impression: Acute pancreatitis Meeker criteria- 5 (40% risk) Initial Suspected cholecystitis SIRS DM2 GERD/Barretts HLD HTN H/O COPD H/O blood clot in arm Morbid obesity Plan:05/01/16 Dr. Mead PCP: Dr. Gregg He is well known to Dr. Galeana- will consult him to see pt tomorrow AM. Will need bowel rest. NPO, rare ice chips for comfort. Check GB sono in am to allow pain to settle down. IVF for hydration. Pain control. Will start Meropenem given early sepsis concerns. Assess lipid panel. He reports his BG is usually well controlled. D/W him that acute illness may make the BG higher. Will continue lower doses of long acting; PRN short acting. Add IV PPI given hx of hiatal hernia. Continue inhalers PRN for asthma. Add SCDs and heparin (shorter acting) to prevent DVT given hx. Supportive care. Will need SW consult given financial concerns. DVT Prophylaxis: SCD's GI Prophylaxis: Protonix Resuscitation Status: Full Code - Physician Narrative Physician: Xavi Mead MD Narrative: Date: 05/01/17 Time: 1510 I have independently evaluated and examined this patient. I reviewed the chart, the patient's history, and the SHEET METAL ENGINEER/PA's documented findings as above. We discussed and formulated the assessment and plan as above with additions as below: 66 yo male who began having mid-epigastric pain last night. He had dry heaves after trying to drink water. He presented to ED and was found to have lipase 8922, WBC 15.6. He has had problems with his gall bladder in the past. CT showed partial fatty infiltrate of pancreas and questionable edema in gallbladder wall. Patient's pain has been better controlled with morphine than with fentanyl. NAD. CTAB. RRR. Obese, tender mid-epigastric and RUQ, no guarding/rebound. No edema. Inpatient admission. Will have morphine available for pain. IV Dilaudid is not available. NPO. IVF. Abx started. Zofran prn. Plan for u/s to eval gall bladder. Will consult Dr. Galeana. With him NPO, will reduce insulin and monitor. Change PPI to iv until he is taking po. SCDs and heparin for DVT ppx. Encourage activity. Sepsis Assessment - Evaluation SIRS Criteria: pulse > 90 beats/minute, WBC > 12,000 Severe Sepsis: lactate > 2.0 mg/dL Hospital Course Summary Disclaimer: The visit summary below is not to be considered part of the above Progress Note. Hospital Course: Impression: Acute pancreatitis Meeker criteria- 5 (40% risk) Initial Suspected cholecystitis SIRS DM2 GERD/Barretts HLD HTN H/O COPD H/O blood clot in arm Morbid obesity Plan:05/01/16 Dr. Mead PCP: Dr. Gregg He is well known to Dr. Galeana- will consult him to see pt tomorrow AM. Will need bowel rest. NPO, rare ice chips for comfort. Check GB sono in am to allow pain to settle down. IVF for hydration. Pain control. Will start Meropenem given early sepsis concerns. Assess lipid panel. He reports his BG is usually well controlled. D/W him that acute illness may make the BG higher. Will continue lower doses of long acting; PRN short acting. Add IV PPI given hx of hiatal hernia. Continue inhalers PRN for asthma. Add SCDs and heparin (shorter acting) to prevent DVT given hx. Supportive care. Will need SW consult given financial concerns.
[2017-05-01] MEDS ORDERED: HYDROMORPHONE 2 MG/ML INJECTION IVP PRN (13:18)
[2017-05-01] MEDS ORDERED: GLUCOSE ORAL GEL 40% 37.5gm PO PRN (13:20)
[2017-05-01] MEDS ORDERED: DEXTROSE 50% SYRINGE 50ml (1 AMP) IVP PRN (13:20)
[2017-05-01] MEDS ORDERED: MEROPENEM 1 GM in NS 100 ML IV SCH (13:30)
[2017-05-01] MEDS ORDERED: ERTAPENEM 1 G in NS 100 ML IV SCH (13:45)
[2017-05-01] MEDS: MORPHINE SULFATE 2mg INJECTION IVP PRN ×2 (13:54→20:28)
[2017-05-01] MEDS: PANTOPRAZOLE 40 MG INJECTION IVP SCH (13:54)
[2017-05-01] MEDS: NS with KCL 20 mEq 1,000 ML IV SCH ×2 (13:54→22:59)
[2017-05-01] MEDS: INSULIN REGULAR, HUMAN 100 UNIT/ML INJECTION SQ PRN ×3 (14:47→21:40)
[2017-05-01] MEDS: ERTAPENEM 1 G in NS 50 ML IV SCH (14:48)
[2017-05-01] MEDS: ONDANSETRON 4 MG/2 ML INJECTION IVP PRN (16:41)
[2017-05-01] MEDS: INSULIN DETEMIR 100unit/ml INJECTION SQ SCH (21:34)
[2017-05-01] MEDS: HEPARIN SUB-Q 5,000units/0.5ml INJECTION SQ SCH (21:42)
[2017-05-01] MEDS: METOCLOPRAMIDE 10mg/2ml INJECTION IVP PRN (21:46)
[2017-05-02] MEDS: MORPHINE SULFATE 2mg INJECTION IVP PRN ×2 (04:21→11:02)
[2017-05-02] MEDS: INSULIN REGULAR, HUMAN 100 UNIT/ML INJECTION SQ PRN ×2 (06:14→21:12)
[2017-05-02] MEDS ORDERED: DiphenhydrAMINE 25 MG CAPSULE PO PRN (06:48)
[2017-05-02] MEDS: NS with KCL 20 mEq 1,000 ML IV SCH ×4 (07:40→20:23)
--- NOTE | 2017-05-02 07:55 | General Surgery Consult Note ---
Consult date: 05/02/17 Attending Physician: Xavi Mead IV, MD Reason for consult: other (Acute cholecystitis, pancreatitis) [facility] Patient Stated Medical History Hypertension Yes Chronic Obstructive Pulmonary Yes Disease (COPD) Diabetes Mellitus Yes Gastroesophageal Reflux Yes Disease Clotting Problems Yes: clots in l arm Osteoarthritis Pt denies osteoarthritis History of Barrette's esophagus Hiatal Hernia Ruptured diverticulitis 02/2007 Surgical History: -Colon resection with colostomy due to ruptured diverticulum- 02/2007. -Colostomy reversal with appy 09/2007. -Right knee 08/2007. -EGD with ablation of Marin's,10/20/2013. -Rob[place]c Ventral incisional hernia repair w 15x20 cm mesh 10/2016. Cervical spine fusion Family History: Adopted - Social History Smoking status: Never smoker Current residence: Apartment/Private Home Medications Home Medications Medication Instructions Recorded Confirmed Type Insulin Aspart [NovoLOG] 8 - 12 unit SQ TID #0 10/25/15 05/01/17 History Montelukast Sodium [Singulair] 1 tab PO HS #0 10/25/15 05/01/17 History Omeprazole 1 cap PO BID #0 10/25/15 05/01/17 History Fluticasone Propionate [Flonase 1 spray [place] DAILY 11/03/16 05/01/17 History Allergy Relief] Lisinopril [Prinivil] 5 mg PO DAILY 11/03/16 05/01/17 History Fluticasone/Salmeterol 250/50 1 puff INH BID 05/01/17 05/01/17 History [Advair 250-50 Diskus] Insulin Detemir [Levemir] 36 unit SQ BID 05/01/17 05/01/17 History Allergies Allergy/AdvReac Type Severity Reaction Status Date / Time Penicillins Allergy Intermediate HIVES Verified 05/01/17 07:11 latex Allergy Mild TOPICAL Verified 05/01/17 07:11 RASH Review of Systems 10-point ROS: negative except for HPI and the following: - General General: Present: unexplained weight loss - Respiratory Respiratory: Present: wheezing (with asthma flares), cough (asthma) - Musculoskeletal Musculoskeletal: Present: neck pain, back pain - Endocrine Endocrine: Present: diabetes - Vital Signs Last Vital Signs Temp 99.8 F 05/02/17 07:48 Pulse 82 05/02/17 07:48 Resp 18 05/02/17 07:48 BP 113/57 05/02/17 07:48 Pulse Ox 93 05/02/17 07:48 - Laboratory Result Diagrams: 05/02/17 03:59 05/02/17 03:59 - Microbiogy Microbiology 05/01/17 13:39 Peripheral/Iv Start Blood Culture - Preliminary Culture Initiated - Results Pending 05/01/17 13:48 Peripheral/Iv Start Blood Culture - Preliminary Culture Initiated - Results Pending General Surgery Results - Results Labs: 05/02/17 03:59 05/02/17 03:59 Microbiology: Microbiology 05/01/17 13:39 Peripheral/Iv Start Blood Culture - Preliminary Culture Initiated - Results Pending 05/01/17 13:48 Peripheral/Iv Start Blood Culture - Preliminary Culture Initiated - Results Pending Hospital Course Summary Disclaimer: The visit summary below is not to be considered part of the above Progress Note. Hospital Course: Impression: Acute pancreatitis [place] criteria- 5 (40% risk) Initial Suspected cholecystitis SIRS DM2 GERD/Barretts HLD HTN H/O COPD H/O blood clot in arm Morbid obesity Plan:05/01/16 Dr. Mead PCP: Dr. Gregg He is well known to Dr. Galeana- will consult him to see pt tomorrow AM. Will need bowel rest. NPO, rare ice chips for comfort. Check GB sono in am to allow pain to settle down. IVF for hydration. Pain control. Will start Meropenem given early sepsis concerns. Assess lipid panel. He reports his BG is usually well controlled. D/W him that acute illness may make the BG higher. Will continue lower doses of long acting; PRN short acting. Add IV PPI given hx of hiatal hernia. Continue inhalers PRN for asthma. Add SCDs and heparin (shorter acting) to prevent DVT given hx. Supportive care. Will need SW consult given financial concerns.
[2017-05-02] MEDS: PANTOPRAZOLE 40 MG INJECTION IVP SCH (08:14)
[2017-05-02] MEDS: DiphenhydrAMINE 50 MG/ML INJECTION IVP PRN ×2 (08:14→21:15)
[2017-05-02] MEDS: HEPARIN SUB-Q 5,000units/0.5ml INJECTION SQ SCH (08:14)
[2017-05-02] MEDS: INSULIN DETEMIR 100unit/ml INJECTION SQ SCH ×2 (08:14→20:11)
[2017-05-02] MEDS: ERTAPENEM 1 G in NS 50 ML IV SCH (08:15)
--- NOTE | 2017-05-02 08:56 | CT Scan Report ---
Indication: abd pain PROCEDURE: CT abdomen pelvis w con: Encounter: Initial Comparison: None Technique: Helical imaging was performed through the abdomen and pelvis after the uneventful IV administration of 98 cc of Omnipaque 300. 3-dimensional volume rendered reconstructions were performed on the helically acquired data. Automated Exposure Control and Iterative Reconstruction dose reducing techniques were utilized. FINDINGS: Abdomen: The lung bases are clear. There is no evidence of pleural effusion. The liver is homogeneous in appearance without evidence of enhancing lesion or mass. There is no intra or extrahepatic biliary ductal dilatation. The spleen, pancreas, bilateral adrenals and kidneys are within normal limits. The visualized loops of small and large bowel within the abdomen are unremarkable. There is no free fluid or intra-abdominal mass seen. No aggressive lytic or blastic bony lesions are noted. Pelvis: A normal appendix is identified with certainty. The visualized loops of small and large bowel within the pelvis are unremarkable. There is no free pelvic fluid. There is no inguinal or pelvic lymphadenopathy. No gross lytic or blastic bony lesions are identified. IMPRESSION: No definite infectious or inflammatory process. No evidence for mass lesion or adenopathy. .
--- NOTE | 2017-05-02 09:38 | Ultrasound Report ---
Indication: Acute GB, pancreatitis PROCEDURE: US gall bladder: Encounter: Initial Comparison: CT dated 10/25/2015 FINDINGS: The gallbladder is thin-walled and nondistended with mobile echogenic gallstones. There does appear to be a positive sonographic Mancia's sign. CBD is normal measuring 4.0 mm. The pancreas is largely obscured by bowel gas. Visualized portions of the pancreas are unremarkable. The liver is mildly echogenic suggesting fatty infiltration, measuring 18.4 cm in length. Duplex Doppler ultrasound was used to evaluate the quality of flow within the portal vein and to document flow in the appropriate direction.. The IVC is unremarkable. No free fluid. The right kidney is unremarkable measuring 12.9 cm in length. IMPRESSION: Cholelithiasis with positive sonographic Mancia's sign suggesting early mild cholecystitis, acute versus chronic. Moderate diffuse fatty infiltration of the liver. .
[2017-05-02] MEDS: ONDANSETRON 4 MG/2 ML INJECTION IVP PRN ×2 (11:02→20:35)
[2017-05-02] MEDS ORDERED: IOHEXOL 300mg/ml 50ml INJECTION ONE (12:37)
[2017-05-02] MEDS ORDERED: BUPIVACAINE 0.5%/EPI 1:200,000 INJ 30ml SDV ONE (12:37)
[2017-05-02] MEDS: LR 1,000 ML IV SCH ×2 (12:38→15:32)
--- NOTE | 2017-05-02 12:52 | Anesthesia Preoperative Report ---
Anesthesia Preoperative Record - Date and Time Date: 05/02/17 Preoperative Diagnosis: pancreatitis Proposed Procedure: Robotic Gall Bladder NPO Since Date: 05/01/17 NPO Since Time: 02:30 Allergies/Adverse Reactions: Allergies Allergy/AdvReac Type Severity Reaction Status Date / Time Penicillins Allergy Intermediate HIVES Verified 05/01/17 07:11 latex Allergy Mild TOPICAL Verified 05/01/17 07:11 RASH - Vital Signs Vital Signs: Temperature 98.4 F 05/02/17 12:34 Pulse Rate 96 05/02/17 12:34 Respiratory Rate 13 05/02/17 12:34 Blood Pressure 141/58 H 05/02/17 12:34 Pulse Oximetry 91 05/02/17 12:34 Height and Weight: Height 5 ft 11 in Weight 144 kg Body Mass Index 43.8 - Medications Inpatient Medications: Current Medications Dextrose (D50%W) 10 ml IVP PRN PRN PRN Reason: Hypoglycemia Diphenhydramine HCl (Benadryl) 25 mg IVP Q6HR PRN PRN Reason: Itching Last Admin: 05/02/17 08:14 Dose: 25 mg Glucose (Glutose 15) 37.5 gm PO PRN PRN PRN Reason: Hypoglycemia Heparin Sodium (Porcine) (Heparin Sq) 5,000 units SQ Q12HR [facility] Last Admin: 05/02/17 08:14 Dose: 5,000 units Potassium Chloride/Sodium Chloride (Ns With Kcl 20 Meq) 1,000 mls @ 125 mls/hr IV .Q8H [facility] Last Infusion: 05/02/17 12:21 Dose: Infused Ertapenem 1 g/ Sodium Chloride 50 mls @ 100 mls/hr IV DAILY [facility] Last Infusion: 05/02/17 08:45 Dose: Infused Lactated Ringer's (Lactated Ringers) 1,000 mls @ 50 mls/hr IV .Q20H [facility] Last Admin: 05/02/17 12:38 Dose: 50 mls/hr Insulin Detemir (Levemir) 20 unit SQ BID [facility] Last Admin: 05/02/17 08:14 Dose: 20 unit Insulin Human Regular (Novolin R) 2 - 8 unit SQ SS PRN; Protocol PRN Reason: Hyperglycemia Last Admin: 05/02/17 06:14 Dose: 2 unit Metoclopramide HCl (Reglan) 10 mg IVP Q6H PRN Last Admin: 02/04/18 21:46 Dose: 10 mg Morphine Sulfate (Morphine Sulfate Inj) 2 mg IVP Q2H PRN PRN Reason: Pain Last Admin: 05/02/17 11:02 Dose: 2 mg Ondansetron HCl (Zofran) 4 mg IVP Q6H PRN PRN Reason: Nausea &/or vomiting Last Admin: 05/02/17 11:02 Dose: 4 mg Pantoprazole Sodium (Protonix Iv) 40 mg IVP DAILY [facility] Last Admin: 05/02/17 08:14 Dose: 40 mg Fluticasone/Salmeterol (Advair Diskus) 1 puff ORAL INH BID [facility] Last Admin: 05/02/17 10:37 Dose: 1 puff Sodium Chloride (Iv Flush) 10 - 80 ml IV PRN PRN PRN Reason: Flushing Home Medications: Home Medications Medication Instructions Recorded Confirmed Type Insulin Aspart [NovoLOG] 8 - 12 unit SQ TID #0 10/25/15 05/01/17 History Montelukast Sodium [Singulair] 1 tab PO HS #0 10/25/15 05/01/17 History Omeprazole 1 cap PO BID #0 10/25/15 05/01/17 History Fluticasone Propionate [Flonase 1 spray [place] DAILY 11/03/16 05/01/17 History Allergy Relief] Lisinopril [Prinivil] 5 mg PO DAILY 11/03/16 05/01/17 History Fluticasone/Salmeterol 250/50 1 puff INH BID 05/01/17 05/01/17 History [Advair 250-50 Diskus] Insulin Detemir [Levemir] 36 unit SQ BID 05/01/17 05/01/17 History Is Patient on Beta Vonnie?: No - Medical History Respiratory: Reports: Asthma, Chronic Obstructive Pulmonary Disease (COPD) Cardiovascular: Reports: Hypertension DENIES: Abnormal EKG, Angina, Arrhythmia, Congestive Heart Failure, Coronary Artery Disease, Heart Murmur, Hypotension, High Cholesterol, Myocardial Infarction, Rheumatic Fever, Valvular Heart Disease, Other Gastrointestional: Reports: Gastroesophageal Reflux Disease, Morbid Obesity DENIES: Obstructive Bowel, Hepatitis, Cirrhosis, Nausea or Vomiting Present, Gastrointestinal Bleeding, Hiatal Hernia, Ulcer, Other Neuro/Musculoskeletal: Denies: HX.MS.OSAR (Pt denies osteoarthritis), Back Problems, Cerebrovascular Accident, Depression, Headaches, Loss of Consciousness, Muscle Weakness, Neuromuscular Disorder, Paralysis, Paresthesia, Syncope, Seizures, Other Renal/Endocrine: Reports: Diabetes Mellitus Type 1 DENIES: Diabetes Mellitus Type 2, Renal Failure, Dialysis, Thyroid Disease, Weight Loss, Weight Gain, Other - Surgical History GI Surgery/Treatments: Reports: Hernia Repair (october 2016), EGD Musculoskeletal Surgery/Tx: Reports: Knee Arthroscopy Anesthesia Reactions: None Hx Family Anesthesia Reaction: No - Social History Smoking Status: Never smoker Hx Chewing Tobacco Use: No Second Hand Exposure: No Substance Use Type: does not use Alcohol Intake Frequency: does not drink - Pertinent Findings Laboratory: CBC and BMP 05/02/17 03:59 05/02/17 03:59 BMP 05/02/17 03:59 Sodium 142 Potassium 4.2 Chloride 110 H D Carbon Dioxide 27 BUN 14.0 Creatinine 0.9 Glucose 158 H Calcium 8.5 D Liver Function 05/02/17 Range/Units 03:59 Total Bilirubin 4.70 H (0.20-1.30) MG/DL AST 568 H D (17-59) U/L ALT 680 H D (21-72) U/L Alkaline Phosphatase 203 H (38-126) U/L Albumin 3.3 L (3.5-5.0) G/DL EKG: Sinus Rhythm - Physical Exam Respiratory Exam: Present: lungs clear, bilateral breath sounds equal Cardiovascular Exam: Present: regular rate and rhythm, no murmur - Airway Assessment Mallampati Score: I TMD: 3 Fingerbreadths Teeth: poor dentation (upper) Overall Assessment: may be difficult mask vent, may be difficult intubation - ASA ASA Score: 3 - Plan Anesthesia: General Inhalation Gases - Discussion Discussion: Discussed risks/options/alternatives of anesthesia and questions answered. Patient consents. Nursing pain assessment noted. Attestation Statement: Prior to the delivery of any anesthetic medication, I examined the patient, developed the plan, obtained the patient's consent and discussed the risk and benefits of the procedure with the patient/guardian. - Additional Information Seen by Anesthesia: Yes
[2017-05-02] MEDS ORDERED: INDOCYANINE GREEN 25mg INJECTION ONE ×2 (13:00→13:04)
[2017-05-02] MEDS ORDERED: SUCCINYLCHOLINE 20mg/mL 10mL INJECTION ONE ×2 (13:15→15:53)
[2017-05-02] MEDS ORDERED: ROCURONIUM 50 MG/5 ML INJECTION IVP ONE ×2 (13:15→15:53)
[2017-05-02] MEDS ORDERED: PROPOFOL 500 MG/50 ML VIAL ONE ×2 (13:15→15:53)
[2017-05-02] MEDS ORDERED: MIDAZOLAM 2mg/2ml INJECTION IVP ONE (13:25)
[2017-05-02] MEDS ORDERED: INDOCYANINE GREEN 25mg INJECTION IVP ONE (13:30)
[2017-05-02] MEDS ORDERED: SALINE FLUSH 10ml SYRINGE IV ONE ×2 (13:30→13:40)
[2017-05-02] MEDS ORDERED: SALINE FLUSH 10ml SYRINGE ONE (13:32)
--- NOTE | 2017-05-02 13:43 | Consultation ---
DATE OF CONSULTATION 05/02/2017 FINDINGS Mr. Beltran is a 66-year-old gentleman who is known my surgical practice. I have taken care of the patient in the past as a result of a history for ruptured diverticulitis, takedown of a prior colostomy, and repair of an incisional hernia in October of last year. The patient informs me that he has not been feeling well now for a couple of weeks. He states that initially he thought maybe it was a result of his history for esophagitis/Mairn's. The patient states that he has been having pain located within his upper abdomen now , as stated above, for about the last two weeks. He patient states that over the weekend this pain became more severe in nature and more localized to the right upper quadrant of his abdomen. The patient did have some nausea and vomiting in association with the pain. Pain was severe enough that he presented to the emergency room and was subsequently admitted. During the process of evaluation I did notice that his bilirubin was elevated. Upon questioning the patient he states that over the last 24 hours he has noted that his "urine has become dark." The patient states that his abdominal pain is improved today. He still, however, has some minimal discomfort within his epigastric region. His nausea and vomiting has resolved. PAST MEDICAL HISTORY Performed by my nurse practitioner, Kwame Headley. PAST SURGICAL HISTORY Performed by my nurse practitioner, Kwame Headley. MEDICATIONS Performed by my nurse practitioner, Kwame Headley. ALLERGIES Performed by my nurse practitioner, Kwame Headley. SOCIAL HISTORY Performed by my nurse practitioner, Kwame Headley. FAMILY HISTORY Performed by my nurse practitioner, Kwame Headley. REVIEW OF SYSTEMS Performed by my nurse practitioner, Kwame Headley. PHYSICAL EXAMINATION Mr. Beltran is a 66-year-old gentleman who this late morning did not appear to be in any acute distress. VITALS: Temperature 99.8, pulse 85, respirations 18, blood pressure 113/57, SaO2 93% on room air. HEENT: Normocephalic. Pupils are equal, round and reactive to light and accommodation. NECK: Supple without lymphadenopathy. CHEST: Clear to auscultation bilaterally. HEART: Regular rate and rhythm. Normal S1 and S2 without gallops, murmurs or clicks. ABDOMEN: Palpation of the abdomen does reveal some minimal tenderness within the right upper quadrant. He does have a slight component of some voluntary guarding. There is, however, no evidence for involuntary guarding or rebound tenderness. EXTREMITIES: Without clubbing, cyanosis, or edema. NEURO: Cranial nerves II-XII grossly intact. Patient is without focal motor or sensory deficits. LABORATORY/RADIOGRAPH EVALUATION The patient was admitted and his white count was 15.6. White count today is 7.8. Hemoglobin is stable at 14.5. Bilirubin yesterday was 1.6. Bilirubin today is increased to 4.7. AST, ALT, alk phos are all elevated at 568, 680 and 203, respectively. Lipase yesterday on admission was 8,922. Lipase today has essentially returned to normal at 336. Radiographically, the patient did have a CT scan of his abdomen and pelvis as well as a gallbladder ultrasound. CT scan revealed no definitive evidence for an infectious or inflammatory process. There was no evidence for mass or adenopathy. Gallbladder ultrasound was obtained today. Gallbladder ultrasound did reveal evidence for cholelithiasis with a positive sonographic Mancia sign, suggesting early mild cholecystitis versus chronic cholecystitis. The patient was found to have some fatty infiltration of his liver. ASSESSMENT 66-year-old gentleman with gallstone pancreatitis which has resolved from a clinical and laboratory standpoint at this time. Patient with probable choledocholithiasis given elevation of liver function tests and bilirubin. PLAN A robotic-assisted laparoscopic cholecystectomy with intraoperative cholangiogram, possible open. INFORMED DISCLOSURE I informed the patient that it was my clinical intuition that he was suffering from symptomatic cholelithiasis/gallstone pancreatitis which has now resolved. It was recommendation that we should therefore proceed with surgical intervention. I did discuss in detail with the patient what a robotic-assisted laparoscopic cholecystectomy with intraoperative angiogram entails and its associated risks which include, but are not limited to, bleeding, infection, potential injury to adjacent structures, especially the common bile duct, as well as the risk for conversion to open procedure. The patient was informed that his risk for conversion to open procedure was higher given the fact that he has had a prior ventral herniorrhaphy with incorporation of mesh involving the majority of his anterior abdominal wall. He has also had multiple surgeries. I informed the patient that if upon cholangiography he was found to have a common bile duct stone that we would attempt to remove it laparoscopically. If this is not able to be accomplished, option of proceeding with open common bile duct exploration versus transferring the patient to [facility] for ERCP was discussed with the patient. It was concluded that if we were able to remove gallbladder laparoscopically and he was found to have a common bile duct stone that was unable to be cleared laparoscopically that we would send the patient to [facility] for ERCP. The patient understood and agreed with the proposed plan/algorithm as stated above. MARIMAR
[2017-05-02] MEDS ORDERED: FentaNYL 250 MCG/5 ML INJECTION ONE (13:45)
[2017-05-02] MEDS ORDERED: LIDOCAINE VISCOUS 2% ORAL LIQUID 15ml ONE (13:46)
[2017-05-02] MEDS ORDERED: GLYCOPYRROLATE 0.4 MG/2 ML INJECTION ONE (13:49)
[2017-05-02] MEDS ORDERED: BUPIVACAINE 0.5%/EPI 1:200,000 INJ 30ml SDV ID ONE (14:19)
[2017-05-02] MEDS ORDERED: OMNIPAQUE 300 MG/ML OPSITE ONE (14:54)
[2017-05-02] MEDS ORDERED: NS IRR MIX OPSITE ONE (14:54)
--- NOTE | 2017-05-02 15:28 | Remote Fluorsocopy Report ---
Indication: STONES GALLBLADDER PROCEDURE: RF cholangiogram operative: Encounter: Initial Comparison: None. Findings: Multiple spot views of the right upper quadrant demonstrate retrograde filling of the cystic duct remnant with filling of the distal CBD, common hepatic duct, and intrahepatic biliary radicles. There is no definite filling defect. There is free spill of the contrast into the duodenum. No definite extravasation. Impression: No definite retained stone or obstruction. .
[2017-05-02] MEDS ORDERED: ONDANSETRON 4 MG/2 ML INJECTION IVP PRN (16:23)
[2017-05-02] MEDS ORDERED: FentaNYL 100 MCG/2 ML INJECTION IVP PRN (16:23)
[2017-05-02] MEDS ORDERED: METOCLOPRAMIDE 10mg/2ml INJECTION IVP PRN (16:23)
--- NOTE | 2017-05-02 16:26 | Anesthesia Postoperative Note ---
- Date and Time Date: 05/02/17 Time: 16:25 - Status Patient Participated in Evaluation: Patient Participated in Person Vital Signs: Temperature 98.4 F 05/02/17 12:34 Pulse Rate 94 05/02/17 13:55 Respiratory Rate 16 05/02/17 13:55 Blood Pressure 148/70 H 05/02/17 13:55 Pulse Oximetry 94 05/02/17 13:55 Respiratory Function: Airway Patent Cardiovascular Function: Regular Pulse EKG: Sinus Rhythm Mental Status: Alert and Oriented Pain Intensity: 0 Hydration: IV Infusing Complications During Recover: None Apparent - Follow-Up Instructions Instructions: Per Surgeon
--- NOTE | 2017-05-02 16:32 | General Surgery Procedure Note ---
Date of Procedure: 05/02/17 Surgeon: Kervin Journeyman Powerhouse Operator: Kwame Headley APRN Postoperative Diagnosis: Gallstone Pancreatitis, Symptomatic Cholelithiasis Procedure: robotic assisted laparoscopic cholecystectomy with Firefly imaging and Intraoperative cholangiogram Estimated Blood Loss: See Anesthesia Record.
[2017-05-02] MEDS: HYDROCODONE/APAP 5mg/325mg TABLET PO PRN (17:46)
--- NOTE | 2017-05-02 19:04 | Progress Note ---
- Date 05/02/17 Subjective: Patient had lap archie this afternoon. He is having some abdominal pain and is waiting on another pill. He says he has some nausea but doesn't think he needs anything. Prior to surgery he was not having pain and was ambulating in the [place]a. He has not had a chance to eat yet. Objective Vital signs: Temperature 98.5 F 05/02/17 17:00 Pulse Rate 82 05/02/17 18:15 Respiratory Rate 20 05/02/17 17:15 Blood Pressure 167/74 H 05/02/17 18:15 Pulse Oximetry 95 05/02/17 18:15 Height/Weight/BMI: Height 5 ft 11 in Weight 144 kg Body Mass Index 43.8 - Constitutional Present: well nourished, well developed - Routine HEENT Exam Eye: Present: EOMI ENT: Present: mucous membranes moist - Routine Respiratory Exam Present: CTA bilaterally. Absent: wheezes - Routine Cardiovascular Exam Present: RRR. Absent: murmur - Routine Abdominal Exam Present: soft, tenderness (at incision sites), non distended. Absent: rebound, guarding - Routine Extremities Exam Present: no edema - Routine Neurological Exam Present: alert, oriented X3, CN II-XII intact, moving all extremities - Routine Psychiatric Exam Present: normal affect, cooperative Results - Labs CBC & Chem 7: 05/02/17 03:59 05/02/17 03:59 Microbiology Results: Microbiology 05/01/17 13:39 Peripheral/Iv Start Blood Culture - Preliminary No Growth After 1 Day 05/01/17 13:48 Peripheral/Iv Start Blood Culture - Preliminary No Growth After 1 Day Assessment and Plan (1) Pancreatitis Current visit: Yes Status: Acute Assessment and Plan: Impression: Gallstone pancreatitis cholecystitis - s/p robotic assisted laparoscopic cholecystectomy with Firefly imaging and Intraoperative cholangiogram SIRS DM2 GERD/Barretts HLD HTN H/O COPD H/O blood clot in arm Morbid obesity Plan:05/02/16 Patient was improved this AM. Tolerated surgery. Pain control. Meropenem given early sepsis concerns. Lactate has normalized. Restart Novolog with meals as diet advanced. Continue inhalers PRN for asthma. Add SCDs and heparin (shorter acting) to prevent DVT given hx. Supportive care. Will need SW consult given financial concerns. - Physician Narrative Narrative: Date: 05/02/17 Time: 1900 Hospital Course Summary Disclaimer: The visit summary below is not to be considered part of the above Progress Note. Hospital Course: Impression: Acute pancreatitis Banner criteria- 5 (40% risk) Initial Suspected cholecystitis SIRS DM2 GERD/Barretts HLD HTN H/O COPD H/O blood clot in arm Morbid obesity Plan:05/01/16 Dr. Mead PCP: Dr. Gregg He is well known to Dr. Galeana- will consult him to see pt tomorrow AM. Will need bowel rest. NPO, rare ice chips for comfort. Check GB sono in am to allow pain to settle down. IVF for hydration. Pain control. Will start Meropenem given early sepsis concerns. Assess lipid panel. He reports his BG is usually well controlled. D/W him that acute illness may make the BG higher. Will continue lower doses of long acting; PRN short acting. Add IV PPI given hx of hiatal hernia. Continue inhalers PRN for asthma. Add SCDs and heparin (shorter acting) to prevent DVT given hx. Supportive care. Will need SW consult given financial concerns. Impression: Gallstone pancreatitis cholecystitis - s/p robotic assisted laparoscopic cholecystectomy with Firefly imaging and Intraoperative cholangiogram SIRS DM2 GERD/Barretts HLD HTN H/O COPD H/O blood clot in arm Morbid obesity Plan:05/02/16 Patient was improved this AM. Tolerated surgery. Pain control. Meropenem given early sepsis concerns. Lactate has normalized. Restart Novolog with meals as diet advanced. Continue inhalers PRN for asthma. Add SCDs and heparin (shorter acting) to prevent DVT given hx. Supportive care. Will need SW consult given financial concerns.
[2017-05-02] MEDS: MORPHINE SULFATE 4mg INJECTION IVP PRN (20:34)
[2017-05-02] MEDS ORDERED: OMEPRAZOLE 20 MG CAPSULE PO SCH (21:00)
[2017-05-02] MEDS: MONTELUKAST 10 MG TABLET PO SCH (21:07)
[2017-05-03] MEDS: HYDROCODONE/APAP 5mg/325mg TABLET PO PRN ×5 (00:14→23:26)
[2017-05-03] MEDS: MORPHINE SULFATE 4mg INJECTION IVP PRN ×2 (01:15→08:02)
[2017-05-03] MEDS: NS with KCL 20 mEq 1,000 ML IV SCH ×2 (01:16→04:57)
[2017-05-03] MEDS: DiphenhydrAMINE 50 MG/ML INJECTION IVP PRN ×2 (03:11→23:25)
[2017-05-03] MEDS: INSULIN REGULAR, HUMAN 100 UNIT/ML INJECTION SQ PRN ×3 (05:31→21:37)
[2017-05-03] MEDS: OMEPRAZOLE 20 MG CAPSULE PO SCH ×2 (07:01→17:44)
[2017-05-03] MEDS: ERTAPENEM 1 G in NS 50 ML IV SCH (08:23)
[2017-05-03] MEDS: ENOXAPARIN 40 MG/0.4 ML INJECTION SQ SCH (08:24)
[2017-05-03] MEDS: INSULIN ASPART 100unit/ml INJECTION SQ SCH ×3 (08:24→17:44)
--- NOTE | 2017-05-03 08:24 | Operative Note ---
DATE OF SURGERY 05/02/2017 SURGEON Brian Galeana MD INSTRUMENT MAKER APPRENTICE Kwame Headley APRN PREOPERATIVE DIAGNOSIS Symptomatic cholelithiasis/gallstone pancreatitis. POSTOPERATIVE DIAGNOSIS Symptomatic cholelithiasis/gallstone pancreatitis. PROCEDURE Robotic-assisted laparoscopic cholecystectomy with intraoperative cholangiogram and use of intraoperative Firefly biliary imaging. ANESTHESIA General endotracheal. EBL AND FLUIDS Please see chart. BRIEF HISTORY/INDICATIONS Mr. Beltran is a 66-year-old gentleman whom I was asked to see earlier today as a result of his history and physical findings of abdominal pain in conjunction with a recent history for gallstone pancreatitis requiring admission. The patient's lipase had essentially returned normal today. His abdominal pain had also essentially resolved. As a result of the above indications it was recommended that he undergo a cholecystectomy. For completeness please refer to notes included in the patient's chart. FINDINGS Upon laparoscopy the patient was found to have some adhesions within his upper abdomen as a result of his prior mesh ventral herniorrhaphy. Fortunately, these adhesions were taken down without significant difficulty. Liver edge was smooth without nodularities. The gallbladder was distended but without evidence for acute inflammatory changes. Intraoperative cholangiogram was obtained and did not reveal any evidence for choledocholithiasis. A standard robotic-assisted laparoscopic cholecystectomy was able be completed without incident. DESCRIPTION OF PROCEDURE After informed consent was obtained, the patient was brought to the operative suite and placed on the table in supine fashion. The abdomen was then prepped and draped in sterile fashion. Formal time-out was then completed. 0.25% Marcaine with epinephrine was injected just beneath the left costal margin. A 4 -5 mm incision was then made through area of analgesia. A Veress needle was then introduced through this small incision into the peritoneal cavity. Pneumoperitoneum was established to a patient pressure of 15 mmHg utilizing carbon dioxide. Next, a 12-mm camera port was placed along the right lateral abdominal wall. The patient was rotated slightly towards his left. 0.25% Marcaine with epinephrine injected along the mid anterior axillary line along the right lateral abdominal wall. A 12 mm port was then placed overlying an 8 mm, 0-degree da Jarvis camera. The port was then advanced through the subcutaneous tissues, fascial layers and into the peritoneal cavity under direct visualization. Trocar was then removed. The laparoscope was then replaced with a 12-mm da Jarvis camera. One could see a fair amount of adhesions within the midabdomen as a result of his prior mesh ventral herniorrhaphy. An additional 5 mm port was then placed within the right upper quadrant of the abdomen about 3-4 cm below the right costal margin along about the midclavicular line. Additional 8 mm da Jarvis port was then placed within the right lower quadrant under direct visualization. Adhesiolysis was then undertaken. Utilizing a 5 mm Pean grasper and a 5 mm laparoscopic scissors, the adhesions within the upper abdomen were taken down to the level of umbilicus. Majority of the adhesions were between omentum and the previously placed mesh. These adhesions were taken down quite easily. There was one segment of small bowel that was near the umbilicus that was taken down carefully and meticulously under direct visualization with sharp dissection. No serosal tear or enterotomy occurred. Now the adhesions were freed from the umbilical region and upward/in a cephalad fashion. An additional 12 mm camera port was then placed above the level of umbilicus under direct visualization. An additional 8 mm port was then placed within the left upper quadrant under direct visualization. Robot was then docked overlying the patient's right shoulder at a 45-degree angle. The patient was placed in reverse Trendelenburg and rotated towards his left. I then proceeded to the console. My senior court office assistant utilized the initial camera port placed along the left lateral abdominal wall to place a 5-mm grasper through the port and grasp the fundus of the gallbladder and retract it in a cephalad fashion. A fenestrated bipolar grasper was placed in robotic arm 2 and hook cautery was placed in robotic arm 1. Dissection was begun high upon the infundibulum with the use of electrocautery. Posterior aspect of the infundibulum was then freed from the underlying liver bed fossa. Dissection was continued until the only remaining structures coming forth from the infundibulum of the gallbladder were that of the cystic duct and cystic artery. Firefly biliary imaging was performed, but the gallbladder and cystic duct did not fluoresce well. Liver fluoresced quite well. One could, however, see a component of some fluorescence involving the cystic duct. Next, a single Hem-o-reese clip was placed upon the cystic duct adjacent to the infundibulum of the gallbladder. Additional Hem-o-reese clip was then placed upon the cystic artery upon the midportion of the infundibulum of the gallbladder. Additional Hem-o-reese clip was placed just proximally. Cystic artery was then divided between the two clips. A small ductotomy was then created within the cystic duct adjacent to the previously placed Hem-o-reese clip. Robot was then undocked. Given the patient's elevation of bilirubin and increased liver function tests, it was elected to proceed with an intraoperative cholangiogram. Cholangiocatheter was placed through the ductotomy and into the cystic duct. Cholangiogram was then obtained under fluoroscopy. Under fluoroscopy one could see a moderate length of the cystic duct before it entered into the common bile duct. Additionally one could see good flow into the duodenum with an appropriate distal taper of the common bile duct. No filling defects were noted. Proximally one could see the intrahepatic radicles, left and right hepatic ducts and common hepatic. Again, no filling defects were noted. Multiple films were obtained from the cholangiogram for documentation purposes. After obtaining a normal cholangiogram, cholangiocatheter was then removed. Robot was then re-docked overlying the patient's right shoulder at a 45-degree angle. Nurses' Registry Director once again grabbed the fundal portion of the gallbladder and retracted in a cephalad fashion. An additional Hem-o-reese clip was then placed upon the cystic duct proximal to the prior ductotomy. Cystic duct was then divided between the two Hem-o-reese clips. Gallbladder was then carefully and meticulously dissected free from the liver bed fossa. Gallbladder was removed from the 12 mm port site along the right lateral abdominal wall utilizing a laparoscopic retrieval bag. Irrigation was performed and all irrigant was suctioned until clear. Gallbladder fossa was hemostatic in nature. Previously placed hemoclips were visualized and remained to be intact. Ports were removed under direct visualization. The fascia at the two camera 12 mm port sites was closed in a [id number] fashion with 0 Vicryl. All skin incisions were then closed in a subcuticular fashion with 4-0 Monocryl. Dermabond was placed overlying the incisions. The patient was awakened from his general anesthetic and sent back to recovery once deemed in stable condition. Additionally, it should be noted that Kwame Headley APRN, was present throughout the entire case and played a pivotal role in providing assistance and exposure during the course of the procedure. MARIMAR
[2017-05-03] MEDS: INSULIN DETEMIR 100unit/ml INJECTION SQ SCH ×2 (08:25→21:38)
[2017-05-03] MEDS ORDERED: MIDAZOLAM 2mg/2ml INJECTION ONE (08:54)
--- NOTE | 2017-05-03 09:45 | General Surgery Progress Note ---
Subjective Patient reports: still having pain (mostly right upper quadrant and rating it at 7-9. He had morphine this morning for pain control and during his walk in the halls became dizzy and had to sit down.), tolerating a regular diet, shortness of breath (with ambulation), afebrile - Vital Signs Last Vital Signs Temp 98.1 F 05/03/17 08:20 Pulse 83 05/03/17 09:20 Resp 18 05/03/17 06:56 BP 140/84 H 05/03/17 09:20 Pulse Ox 92 05/03/17 06:56 - Laboratory Result Diagrams: 05/03/17 04:26 05/03/17 04:26 - Microbiogy Microbiology 05/01/17 13:39 Peripheral/Iv Start Blood Culture - Preliminary No Growth After 1 Day 05/01/17 13:48 Peripheral/Iv Start Blood Culture - Preliminary No Growth After 1 Day - Abnormal Exam Respiratory: other (short of breath with activity) Abdominal: obese - Normal Exam General: awake, alert Cardiovascular: regular rate Abdominal: soft, appropriately tender, incision(s) (clean dry and intact, Dermabond glue in tact, erythema or sign of infection) Psychiatric: normal affect Assessment and Plan (1) Gallstone pancreatitis Current Visit: Yes Status: Acute (2) Elevated LFTs Current Visit: Yes Status: Acute (3) Diabetes mellitus Current Visit: No Status: Chronic Qualifiers: Diabetes mellitus type: type 2 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 Contrast flowed easily into the duodenum, therefore no common bile duct obstruction. Bilirubin has decreased to 3.00 from 4.70 yesterday, AST and ALT also on the decline today 195/460 respectively, compared to 568/680 yesterday. Anticipate it will take a week or 2 for the bilirubin and LFTs to completely return to normal. Planning on repeat CMP in the outpatient setting June 07 with follow- up appointment on May [address] Galeana [place] [address] Gregg. Encouraged him to utilize by mouth pain medication through today and will reevaluate possible discharge later today or tomorrow based on his dizziness and general medical condition. Hospitalist team following and will make final determination of his suitability for discharge. Hospital Course Summary Disclaimer: The visit summary below is not to be considered part of the above Progress Note. Hospital Course: Impression: Acute pancreatitis [place] criteria- 5 (40% risk) Initial Suspected cholecystitis SIRS DM2 GERD/Barretts HLD HTN H/O COPD H/O blood clot in arm Morbid obesity Plan:05/01/16 Dr. Mead PCP: Dr. Gregg He is well known to Dr. Galeana- will consult him to see pt tomorrow AM. Will need bowel rest. NPO, rare ice chips for comfort. Check GB sono in am to allow pain to settle down. IVF for hydration. Pain control. Will start Meropenem given early sepsis concerns. Assess lipid panel. He reports his BG is usually well controlled. D/W him that acute illness may make the BG higher. Will continue lower doses of long acting; PRN short acting. Add IV PPI given hx of hiatal hernia. Continue inhalers PRN for asthma. Add SCDs and heparin (shorter acting) to prevent DVT given hx. Supportive care. Will need SW consult given financial concerns. Impression: Gallstone pancreatitis cholecystitis - s/p robotic assisted laparoscopic cholecystectomy with Firefly imaging and Intraoperative cholangiogram SIRS DM2 GERD/Barretts HLD HTN H/O COPD H/O blood clot in arm Morbid obesity Plan:05/02/16 Patient was improved this AM. Tolerated surgery. Pain control. Meropenem given early sepsis concerns. Lactate has normalized. Restart Novolog with meals as diet advanced. Continue inhalers PRN for asthma. Add SCDs and heparin (shorter acting) to prevent DVT given hx. Supportive care. Will need SW consult given financial concerns.
[2017-05-03] MEDS: SALINE FLUSH 10ml SYRINGE IV PRN ×2 (09:56→11:56)
[2017-05-03] MEDS: ONDANSETRON 4 MG/2 ML INJECTION IVP PRN ×2 (09:56→19:41)
[2017-05-03] MEDS: METOCLOPRAMIDE 10mg/2ml INJECTION IVP PRN (13:51)
--- NOTE | 2017-05-03 14:01 | Progress Note ---
- Date 05/03/17 Subjective: Patient is seen lying in bed this morning. He c/o dizziness, pain, n/v. States he had some dizziness yesterday but it's worse today. Feels it worsened significantly when he was walking this morning. Pain in abdomen is 8/10. Has passed some gas, but has not yet had a BM. No CP, SOA or cough. He has been eating well. Objective Vital signs: Temperature 96.1 F L 05/03/17 12:00 Pulse Rate 76 05/03/17 12:00 Respiratory Rate 16 05/03/17 12:00 Blood Pressure 128/79 05/03/17 12:00 Pulse Oximetry 93 05/03/17 12:00 Height/Weight/BMI: Height 1.8 m Weight 143.3 kg Body Mass Index 43.8 - Constitutional Present: mild distress (lying in bed with hand over his face due to pain), well nourished, well developed, morbidly obese - Routine HEENT Exam Head: Present: normocephalic, atraumatic - Routine Respiratory Exam Present: CTA bilaterally. Absent: wheezes - Routine Cardiovascular Exam Present: RRR, no murmur - Routine Abdominal Exam Present: soft, normoactive bowel sounds, tenderness, non distended, wound (lap incisions with dermabond. No sign of infection. ) - Routine Extremities Exam Present: no edema, normal capillary refill - Routine Skin Exam Present: dry, warm - Routine Neurological Exam Present: alert, oriented X3 - Routine Lymphatic Exam Lymphatic: Absent: adenopathy - Routine Psychiatric Exam Present: normal affect, cooperative Results - Labs CBC & Chem 7: 05/03/17 04:26 05/03/17 04:26 Microbiology Results: Microbiology 05/01/17 13:39 Peripheral/Iv Start Blood Culture - Preliminary No Growth After 2 Days 05/01/17 13:48 Peripheral/Iv Start Blood Culture - Preliminary No Growth After 2 Days Assessment and Plan (1) Pancreatitis Current visit: Yes Status: Acute Assessment and Plan: Impression: Gallstone pancreatitis Cholecystitis - s/p robotic assisted laparoscopic cholecystectomy with Firefly imaging and Intraoperative cholangiogram (Dr. Galeana 05/02/17) Dizziness - not POA DM2 GERD/Barretts HLD HTN H/O COPD H/O blood clot in arm Morbid obesity Plan:05/02/16 Postop day #1 post robotic-assisted cholecystectomy with intraoperative cholangiogram- pain not optimally controlled at this time. Bilirubin has decreased to 3.00 from 4.70 yesterday, AST and ALT also improving - 195/460 respectively, compared to 568/680 yesterday. Resume home lisinopril. Can try meclizine for dizziness. Blood sugars are improved today with BID Levemir and ac Novolog (home regimen) DVT Prophylaxis: Lovenox Resuscitation Status: Full Code - Time spent with patient Time with patient PN: 25 minutes - Physician Narrative Physician: Nader Hilliard MD Narrative: Date: 05/03/17 Time: 1610 Have independently interviewed and examined pt. Chart reviewed. Case discussed with CM and my PA. Care plan developed with my supervision; agree with above. Doing slightly better this afternoon. Pain down to about 6/10. [place] helps pain , but does cause itching. Nausea decreasing. Passing flatus, but not stool. Less dizzy this afternoon-was able to walk in halls better. Breathing well. Still challenging to get up and be active. Lungs: clear bilaterally. No distress on RA. CV: regular AB: soft obese BS very decreased MSE: awake alert, converses well. Thoughts linear. Plan: Continue with supportive post op care. Encourage ambulation. Continue pain and nausea control. Improving, but patient uncertain if ready for discharge today. Will reassess later today. 1845 Recheck on patient this evening. Pain decreasing. Taking oral in slowly. Notes some dizziness this evening. Feels improving, but slowly. Will continue with care. Reassess tomorrow. Hospital Course Summary Disclaimer: The visit summary below is not to be considered part of the above Progress Note. Hospital Course: 05/01/16 Dr. Mead PCP: Dr. Gregg He is well known to Dr. Galeana- will consult him to see pt tomorrow AM. Will need bowel rest. NPO, rare ice chips for comfort. Check GB sono in am to allow pain to settle down. IVF for hydration. Pain control. Will start Meropenem given early sepsis concerns. Assess lipid panel. He reports his BG is usually well controlled. D/W him that acute illness may make the BG higher. Will continue lower doses of long acting; PRN short acting. Add IV PPI given hx of hiatal hernia. Continue inhalers PRN for asthma. Add SCDs and heparin (shorter acting) to prevent DVT given hx. Supportive care. Will need SW consult given financial concerns. 05/02/16 Patient was improved this AM. Tolerated surgery. Pain control. Meropenem given early sepsis concerns. Lactate has normalized. Restart Novolog with meals as diet advanced. Continue inhalers PRN for asthma. Add SCDs and heparin (shorter acting) to prevent DVT given hx. Supportive care. Will need SW consult given financial concerns. 05/03/16 Postop day #1 post robotic-assisted cholecystectomy with intraoperative cholangiogram. Pain not optimally controlled. Bilirubin has decreased to 3.00 from 4.70 yesterday, AST and ALT also improving - 195/460 respectively, compared to 568/680 yesterday. Resume home lisinopril. Can try meclizine for dizziness. Blood sugars are improved today with BID Levemir and ac Novolog (home regimen)
[2017-05-03] MEDS ORDERED: MECLIZINE 25 MG TABLET PO PRN (14:08)
[2017-05-03] MEDS: FLUTICASONE NASAL SPRAY 50mcg EA NOSTRIL SCH (15:14)
[2017-05-03] MEDS: MONTELUKAST 10 MG TABLET PO SCH (21:37)
--- NOTE | 2017-05-03 22:27 | Progress Note ---
DATE OF SERVICE 05/03/2017 FINDINGS Mr. Beltran was sitting upright this evening and eating. He did not appear to be in acute distress upon entering the room. Patient informs me that he is experiencing some abdominal pain. It is mostly noted when he "moves or laughs." EXAM VITAL SIGNS: Afebrile, normotensive. Please refer to EMR. ABDOMEN: Palpation of the lateral aspect of his abdomen did not reveal any tenderness. The patient does have, of course, some incisional tenderness overlying his trocar sites. There is no evidence for peritoneal signs such as guarding or rebound. LABORATORY/RADIOGRAPHIC EVALUATION The patient had a CBC today and his white count is normal at 5.8. Hemoglobin is 13.3. CMP was obtained and his liver function tests are improving. I do believe it will take several days or more for his lab to return to normal. ASSESSMENT 66-year-old gentleman with history for gallstone pancreatitis, status post robotic-assisted laparoscopic cholecystectomy with lysis of adhesions. Patient currently overall doing well. PLAN Apparently the patient did have some dizziness earlier today. Will keep the patient overnight for ongoing observation/clinical assessment. Will likely discharge to home tomorrow. Overall patient is doing well from a surgical standpoint at this time. MARIMAR
[2017-05-04] MEDS: HYDROCODONE/APAP 5mg/325mg TABLET PO PRN ×2 (01:15→06:29)
[2017-05-04 05:19] VITALS: PULSE 68
[2017-05-04] MEDS: INSULIN REGULAR, HUMAN 100 UNIT/ML INJECTION SQ PRN (05:44)
[2017-05-04] MEDS: OMEPRAZOLE 20 MG CAPSULE PO SCH (06:29)
[2017-05-04 07:18] VITALS: BP 144/92; RESP 18; TEMP 96.6; O2SAT 96
--- NOTE | 2017-05-04 08:32 | General Surgery Progress Note ---
Subjective Patient reports: feels better, pain is less, tolerating a regular diet, voiding w/o difficulty, flatus, no bowel movement Narrative: He wants to go home before noon - Vital Signs Last Vital Signs Temp 96.6 F L 05/04/17 07:17 Pulse 68 05/04/17 07:17 Resp 18 05/04/17 07:17 BP 144/92 H 05/04/17 07:17 Pulse Ox 96 05/04/17 07:17 - Laboratory Result Diagrams: 05/04/17 04:22 05/04/17 04:22 Laboratory Tests 05/02/17 05/03/17 05/04/17 03:59 04:26 04:22 Total Bilirubin 4.70 H 3.00 H 1.40 H AST 568 H D 195 H D 95 H D ALT 680 H D 460 H 364 H - Microbiogy Microbiology 05/01/17 13:39 Peripheral/Iv Start Blood Culture - Preliminary No Growth After 2 Days 05/01/17 13:48 Peripheral/Iv Start Blood Culture - Preliminary No Growth After 2 Days - Abnormal Exam Abdominal: obese - Normal Exam General: awake, alert, oriented Respiratory: no labored breathing Abdominal: soft, appropriately tender, incision(s) (CDI) Psychiatric: normal affect Assessment and Plan (1) Gallstone pancreatitis Current Visit: Yes Status: Acute (2) Elevated LFTs Current Visit: Yes Status: Acute (3) Diabetes mellitus Current Visit: No Status: Chronic Qualifiers: Diabetes mellitus type: type 2 Diabetes mellitus [facility] 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 Rx for [place] given to him for pain. LFTs and bilirubin coming down nicely. Follow up instructions in discharge orders. Hospital Course Summary Disclaimer: The visit summary below is not to be considered part of the above Progress Note. Hospital Course: 05/01/16 Dr. Mead PCP: Dr. Gregg He is well known to Dr. Galeana- will consult him to see pt tomorrow AM. Will need bowel rest. NPO, rare ice chips for comfort. Check GB sono in am to allow pain to settle down. IVF for hydration. Pain control. Will start Meropenem given early sepsis concerns. Assess lipid panel. He reports his BG is usually well controlled. D/W him that acute illness may make the BG higher. Will continue lower doses of long acting; PRN short acting. Add IV PPI given hx of hiatal hernia. Continue inhalers PRN for asthma. Add SCDs and heparin (shorter acting) to prevent DVT given hx. Supportive care. Will need SW consult given financial concerns. 05/02/16 Patient was improved this AM. Tolerated surgery. Pain control. Meropenem given early sepsis concerns. Lactate has normalized. Restart Novolog with meals as diet advanced. Continue inhalers PRN for asthma. Add SCDs and heparin (shorter acting) to prevent DVT given hx. Supportive care. Will need SW consult given financial concerns. 05/03/16 Postop day #1 post robotic-assisted cholecystectomy with intraoperative cholangiogram. Pain not optimally controlled. Bilirubin has decreased to 3.00 from 4.70 yesterday, AST and ALT also improving - 195/460 respectively, compared to 568/680 yesterday. Resume home lisinopril. Can try meclizine for dizziness. Blood sugars are improved today with BID Levemir and ac Novolog (home regimen)
[2017-05-04] MEDS ORDERED: LISINOPRIL 5 MG TABLET PO SCH (09:00)
[2017-05-04] MEDS ORDERED: POLYETHYL GLYCOL 3350 17gm PACKET PO SCH (09:00)
--- NOTE | 2017-05-04 09:20 | Progress Note ---
- Date 05/04/17 Subjective: F/U: Gallstone pancreatitis Doing better today. Pain decreasing-down to 4/10. Not having nausea. Taking liquids in well. Appetite improving. Passing flatus-felt need to pass stool but not able to. Breathing well-not congested or SOA. Ambulating more-notes incisional pain with transfers. Not feeling dizzy today like yesterday. No f/c. Objective Vital signs: Temperature 96.6 F L 05/04/17 07:17 Pulse Rate 68 05/04/17 07:17 Respiratory Rate 18 05/04/17 07:17 Blood Pressure 144/92 H 05/04/17 07:17 Pulse Oximetry 96 05/04/17 07:17 Height/Weight/BMI: Height 1.8 m Weight 145 kg Body Mass Index 43.8 - Constitutional Present: well nourished, well developed, average body habitus, morbidly obese, cooperative - Routine HEENT Exam Head: Present: normocephalic, atraumatic Eye: Present: EOMI, PERRL ENT: Present: mucous membranes moist - Routine Respiratory Exam Present: CTA bilaterally. Absent: respiratory distress, wheezes, crackles - Routine Cardiovascular Exam Present: RRR, no murmur - Routine Abdominal Exam Present: soft, normoactive bowel sounds, non distended, non tender - Routine Extremities Exam Present: pulses intact. Absent: cyanosis, clubbing - Routine Musculoskeletal Exam Musculoskeletal: Present: no clubbing or cyanosis, normal strength - Routine Skin Exam Present: dry, warm - Routine Neurological Exam Present: alert, oriented X3, CN II-XII intact, moving all extremities, vision grossly intact, hearing grossly intact, normal speech. Absent: motor deficit, altered mental status - Routine Psychiatric Exam Present: normal affect, normal thought process, cooperative, good insight, good judgment Results - Labs CBC & Chem 7: 05/04/17 04:22 05/04/17 04:22 Microbiology Results: Microbiology 05/01/17 13:39 Peripheral/Iv Start Blood Culture - Preliminary No Growth After 2 Days 05/01/17 13:48 Peripheral/Iv Start Blood Culture - Preliminary No Growth After 2 Days Assessment and Plan (1) Pancreatitis Current visit: Yes Status: Acute Assessment and Plan: Impression: Gallstone pancreatitis Cholecystitis - s/p robotic assisted laparoscopic cholecystectomy with Firefly imaging and Intraoperative cholangiogram (Dr. Galeana 05/02/17) Dizziness - not POA DM2 GERD/Barretts HLD HTN H/O COPD H/O blood clot in arm Morbid obesity Plan Clinically improving. Pain decreasing, activities increasing, passing flatus, ambulating well. Bilirubin with decrease to 1.4 with AST decreased to 95 and ALT decreased to 364. WBC 4.4. Will discharge to home. Increase diet as tolerated. Activity restrictions as per Dr Galeana. Sweet as needed for pain. F/U with Dr Galeana for post op evaluation. Keep scheduled f/u with Dr Gregg in May. See orders for details. Time spent with patient care and discharge greater than 30 minutes. DVT Prophylaxis: SCD's Resuscitation Status: Full Code - Physician Narrative Physician: Nader Hilliard MD Narrative: Date: 05/04/17 Time: 916 Hospital Course Summary Disclaimer: The visit summary below is not to be considered part of the above Progress Note. Hospital Course: 05/01/16 Dr. Mead PCP: Dr. Gregg He is well known to Dr. Galeana- will consult him to see pt tomorrow AM. Will need bowel rest. NPO, rare ice chips for comfort. Check GB sono in am to allow pain to settle down. IVF for hydration. Pain control. Will start Meropenem given early sepsis concerns. Assess lipid panel. He reports his BG is usually well controlled. D/W him that acute illness may make the BG higher. Will continue lower doses of long acting; PRN short acting. Add IV PPI given hx of hiatal hernia. Continue inhalers PRN for asthma. Add SCDs and heparin (shorter acting) to prevent DVT given hx. Supportive care. Will need SW consult given financial concerns. 05/02/16 OP Day Patient was improved this AM. Tolerated surgery. Pain control. Meropenem given early sepsis concerns. Lactate has normalized. Restart Novolog with meals as diet advanced. Continue inhalers PRN for asthma. Add SCDs and heparin (shorter acting) to prevent DVT given hx. Supportive care. Will need SW consult given financial concerns. 05/03/16 Postop day #1 post robotic-assisted cholecystectomy with intraoperative cholangiogram. Pain not optimally controlled. Bilirubin has decreased to 3.00 from 4.70 yesterday, AST and ALT also improving - 195/460 respectively, compared to 568/680 yesterday. Resume home lisinopril. With increasing activities, patient notes dizziness. Can try meclizine for dizziness. Blood sugars are improved today with BID Levemir and ac NovoLog. 05/04/17 POD #2 Discharge day Clinically improving. Pain decreasing, activities increasing, passing flatus, ambulating well. Bilirubin with decrease to 1.4 with AST decreased to 95 and ALT decreased to 364. WBC 4.4. Will discharge to home. Increase diet as tolerated. Activity restrictions as per Dr Galeana. [place] as needed for pain. F/U with Dr Galeana for post op evaluation. Keep scheduled f/u with Dr Gregg in May. See orders for details.
[2017-05-04] MEDS: INSULIN ASPART 100unit/ml INJECTION SQ SCH (10:08)
[2017-05-04] MEDS: INSULIN DETEMIR 100unit/ml INJECTION SQ SCH (10:08)
[2017-05-04] MEDS: ENOXAPARIN 40 MG/0.4 ML INJECTION SQ SCH (10:08)
[2017-05-04] MEDS: FLUTICASONE NASAL SPRAY 50mcg EA NOSTRIL SCH (10:08)
--- NOTE | 2017-05-04 13:38 | Discharge Summary ---
Discharge Information Date of admission: 05/01/17 10:58 Anticipated date of discharge: 05/04/17 Attending Physician: Nader Hilliard MD Primary care physician: Jg Gregg DO Consults: Physician Consult: Brian Galeana Reason For Exam: Acute Cholecystitis - Discharge Diagnosis (1) Pancreatitis Status: Acute Discharge diagnosis Gallstone pancreatitis Associated conditions and complications Cholecystitis - s/p robotic assisted laparoscopic cholecystectomy with Firefly imaging and Intraoperative cholangiogram (Dr. Galeana 05/02/17) Elevated liver enzymes secondary to gallstone pancreatitis - improving Dizziness - not POA DM2 GERD/Barretts HLD HTN H/O COPD H/O blood clot in arm Morbid obesity with BMI 44.6 - Procedures Procedures: DATE OF SURGERY: 05/02/2017 SURGEON: Brian Galeana MD AUTOMATION ANALYST: Kwame Headley APRN PREOPERATIVE DIAGNOSIS: Symptomatic cholelithiasis/gallstone pancreatitis. POSTOPERATIVE DIAGNOSIS: Symptomatic cholelithiasis/gallstone pancreatitis. PROCEDURE: Robotic-assisted laparoscopic cholecystectomy with intraoperative cholangiogram and use of intraoperative Firefly biliary imaging. ANESTHESIA: General endotracheal. - Laboratory Labs: Admit Lab 05/01/17 08:29 WBC 15.6 H Hgb 16.7 Hct 50.4 MCV 88.9 Plt Count 231 Neutrophils % (Manual) 73.0 H Band Neutrophils % 2.0 Lymphocytes % (Manual) 19.0 L Monocytes % (Manual) 5.0 Eosinophils % (Manual) 1.0 Admit Lab 05/01/17 05/01/17 08:29 11:06 Sodium 143 Potassium 3.6 Chloride 103 Carbon Dioxide 27 Anion Gap 13 BUN 12.0 Creatinine 0.8 GFR Calculation 97 BUN/Creatinine Ratio 15 Glucose 232 H Calculated Osmolality 282 H Calcium 9.7 Total Bilirubin 1.60 H AST 293 H ALT 203 H Alkaline Phosphatase 202 H Lactate Dehydrogenase 1400 H Total Protein 8.3 H Albumin 4.5 Globulin 3.8 H Albumin/Globulin Ratio 1.2 Lipase 8922 H Plasma Lactate 2.1 Laboratory Tests 05/01/17 13:39 Hemoglobin A1c 9.0 H Triglycerides 62 Cholesterol 185 LDL Cholesterol, Calc 126.6 VLDL Cholesterol 12.4 HDL Cholesterol 46 Cholesterol/HDL Ratio 4.0 TSH 05/01/17 13:39 TSH 0.84 Liver Enzymes 05/01/17 05/02/17 05/03/17 08:29 03:59 04:26 Total Bilirubin 1.60 H 4.70 H 3.00 H AST 293 H 568 H D 195 H D ALT 203 H 680 H D 460 H 05/04/17 04:22 Total Bilirubin 1.40 H AST 95 H D ALT 364 H 05/04/17 04:22 05/04/17 04:22 - Microbiology Microbiology 05/01/17 13:39 Peripheral/Iv Start Blood Culture - Preliminary No Growth After 2 Days 05/01/17 13:48 Peripheral/Iv Start Blood Culture - Preliminary No Growth After 2 Days - Radiology Radiology: Date of Exam: 05/01/17 PROCEDURE: CT abdomen pelvis w con FINDINGS: Abdomen: The lung bases are clear. There is no evidence of pleural effusion. The liver is homogeneous in appearance without evidence of enhancing lesion or mass. There is no intra or extrahepatic biliary ductal dilatation. The spleen, pancreas, bilateral adrenals and kidneys are within normal limits. The visualized loops of small and large bowel within the abdomen are unremarkable. There is no free fluid or intra-abdominal mass seen. No aggressive lytic or blastic bony lesions are noted. Pelvis: A normal appendix is identified with certainty. The visualized loops of small and large bowel within the pelvis are unremarkable. There is no free pelvic fluid. There is no inguinal or pelvic lymphadenopathy. No gross lytic or blastic bony lesions are identified. IMPRESSION: No definite infectious or inflammatory process. No evidence for mass lesion or adenopathy. Date of Exam: 05/01/17 PROCEDURE: CHEST 2-VIEWS UPRIGHT (PA & LAT) FINDINGS: The lungs are clear without evidence of focal abnormal airspace opacity. There is no pleural effusion or pneumothorax. Tiny left upper lobe calcified granuloma. The heart size, mediastinal contours and pulmonary vascularity are within normal limits. There is no significant skeletal abnormality. IMPRESSION: No acute cardiopulmonary disease. Date of Exam: 05/02/17 PROCEDURE: US gall bladder FINDINGS: The gallbladder is thin-walled and nondistended with mobile echogenic gallstones. There does appear to be a positive sonographic Mancia's sign. CBD is normal measuring 4.0 mm. The pancreas is largely obscured by bowel gas. Visualized portions of the pancreas are unremarkable. The liver is mildly echogenic suggesting fatty infiltration, measuring 18.4 cm in length. Duplex Doppler ultrasound was used to evaluate the quality of flow within the portal vein and to document flow in the appropriate direction. The IVC is unremarkable. No free fluid. The right kidney is unremarkable measuring 12.9 cm in length. IMPRESSION: Cholelithiasis with positive sonographic Mancia's sign suggesting early mild cholecystitis, acute versus chronic. Moderate diffuse fatty infiltration of the liver. - Date of Exam: 05/02/17 Type of Exam: RF cholangiogram operative Findings: Multiple spot views of the right upper quadrant demonstrate retrograde filling of the cystic duct remnant with filling of the distal CBD, common hepatic duct, and intrahepatic biliary radicles. There is no definite filling defect. There is free spill of the contrast into the duodenum. No definite extravasation. Impression: No definite retained stone or obstruction. - Pathology Gall bladder pathology: Chronic cholecystis and cholelithiasis. NO epithelial atypica or neoplasm identified. History of Present Illness HPI: Dontae is a very pleasant 66 yo WM who presented today due to abdominal pain, inability to tolerate PO. He was unable to tolerate water without vomiting last night. He has a history of multiple abdominal issues. He most recently underwent multiple hernia repairs by Dr. Galeana in Oct of last year. He has been told in the past that he needed his GB removed, but that had been put off due to his need for hernia repair. Again, he reports that his symptoms began yesterday. He was initially concerned that the pain was due to a recurrence of Marin's esophagus, however, he later realized that the pain was more in the RUQ. Denies any fever, but usually runs a "low temperature" when he is ill. Denies any headache or respiratory concern. Reports that he has some neck pain, which is chronic for him. He has recently lost 100 pounds intentionally. 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 Is currently having significant financial concerns due to loss of job. Follows with Dr. Gregg at [facility]. For complete details of the H&P refer to that document. Objective Vital signs: Temperature 96.6 F L 05/04/17 07:17 Pulse Rate 68 05/04/17 07:17 Respiratory Rate 18 05/04/17 07:17 Blood Pressure 144/92 H 05/04/17 07:17 Pulse Oximetry 96 05/04/17 07:17 Height/Weight/BMI: Height 1.8 m Weight 145 kg Body Mass Index 43.8 Hospital Course This is a general summary of the patient's hospital course. For more details refer to the complete medical record. Hospital course: 05/01/16 Dr. Mead PCP: Dr. Gregg He is well known to Dr. Galeana- will consult him to see pt tomorrow AM. Will need bowel rest. NPO, rare ice chips for comfort. Check GB sono in am to allow pain to settle down. IVF for hydration. Pain control. Will start Meropenem given early sepsis concerns. Assess lipid panel. He reports his BG is usually well controlled. D/W him that acute illness may make the BG higher. Will continue lower doses of long acting; PRN short acting. Add IV PPI given hx of hiatal hernia. Continue inhalers PRN for asthma. Add SCDs and heparin (shorter acting) to prevent DVT given hx. Supportive care. Will need SW consult given financial concerns. 05/02/16 OP Day Patient was improved this AM. Tolerated surgery. Pain control. Meropenem given early sepsis concerns. Lactate has normalized. Restart NovoLog with meals as diet advanced. Continue inhalers PRN for asthma. Add SCDs and heparin (shorter acting) to prevent DVT given hx. Supportive care. Will need SW consult given financial concerns. 05/03/16 Postop day #1 post robotic-assisted cholecystectomy with intraoperative cholangiogram. Pain not optimally controlled. Bilirubin has decreased to 3.00 from 4.70 yesterday, AST and ALT also improving - 195/460 respectively, compared to 568/680 yesterday. Resume home lisinopril. With increasing activities, patient notes dizziness. Can try meclizine for dizziness. Blood sugars are improved today with BID Levemir and ac NovoLog. 05/04/17 POD #2 Discharge day Clinically improving. Pain decreasing, activities increasing, passing flatus, ambulating well. Bilirubin with decrease to 1.4 with AST decreased to 95 and ALT decreased to 364. WBC 4.4. Will discharge to home. Increase diet as tolerated. Activity restrictions as per Dr Galeana. [place] as needed for pain. F/U with Dr Galeana for post op evaluation. Keep scheduled f/u with Dr Gregg in May - needs CMP monitoring to document normalization of liver enzymes. See orders for details. Time spent with patient: discharge greater than 30 minutes Resuscitation Status: Full Code Discharge Plan - Discharge Disposition Discharge Date: 05/04/17 Disposition: 01 Discharged Home, Self-Care *Condition: Stable Reason For Visit (Visit label in EMR): pancreatitis - Discharge Medications *Discharge Medications: New RX: Hydrocodone/APAP 5/325 [[place] 5/325] 1 - 2 tab PO Q5H PRN #30 tab PRN Reason: Pain Continue RX: Montelukast Sodium [Singulair] 1 tab PO HS #0 RX: Omeprazole 1 cap PO BID #0 RX: Lisinopril [Prinivil] 5 mg PO DAILY RX: Fluticasone Propionate [Flonase Allergy Relief] 1 spray [place] DAILY RX: Insulin Aspart [NovoLOG] 8 - 12 unit SQ TID #0 RX: Fluticasone/Salmeterol 250/50 [Advair 250-50 Diskus] 1 puff INH BID RX: Insulin Detemir [Levemir] 36 unit SQ BID - Discharge Packet/Instructions *Diet: regular diabetic *Activity: Do not drive, operate machinery for 24 hours after surgery or while taking pain medication. No lifting more than 25 pounds for 4 weeks. *Pain Management/Treatment: Follow prescriptions as prescribed *Wound Care: Leave incision open to air. Do not rub or pick off the glue. May shower starting 05/03/2017 Additional Instructions: [place] [facility] [place], do not need to be fasting, appointment with Dr. Galeana May 11 at 3:30 *Expected Signs/Symptoms: Occasionally there is loose stools after cholecystectomy till the gut "gets used to it's new normal." over the counter antidiarrhea medication can be utilized on an occasional basis if needed, if diarrhea is persistent, other options should be considered, contact our office. *Notify Physician if: 1. Call your surgeon if you are having problems relating to your surgery at [phone]. 2. Problems such as: Temp above 101.5 degrees. You develop redness, excessive swelling of the incision, increasing pain or excessive foul smelling drainage. 3. If the office is closed, call [facility] at [phone] and have your Surgeon paged. *During Business Hours Contact: Call your surgeon at at [phone]. *After Business Hours Contact: If the office is closed, call [facility] at [phone] and have your Surgeon paged. *Pending Lab/Results: Will be notified Outpatient Orders: Provider Discharge Instructions Location: None Selected - Referrals/Follow Up *Referrals/Follow Up: Jg Gregg DO [Family Provider] - 05/26/17 Brian Galeana MD [Physician] - 05/11/17 3:30 pm ( with [facility] lab 05/10) Tanisha Headley APRN [Advanced Practice Nurse] - 05/17/17 10:00 am - Patient Handouts Patient Handouts: Laparoscopic Cholecystectomy (DC) - Dismissal Complete Discharge Instructions are:: Complete Physician Narrative - Narrative Physician: Nader Hilliard MD Attestation Narrative: Date: 05/04/17 Time: 1334 Have independently interviewed patient prior to discharge. See my progress noted from today for details. Medically stable for discharge to home.
== END 2017-05-04 10:19 | disposition home or self-care (01) | DRG 418 ==
LOC: ED 06:57 → MED 10:58 → SUATTDRO 10:58 → MED 11:20 → SRG 05-02 17:00
PROVIDERS: ADMIT Hospitalist; ATTEND Hospitalist